=== PATIENT | male | born 1965 | race Caucasian/White ===

== ENCOUNTER 2019-09-07 17:11 | Observation (INO) ==
[2019-09-07] MEDS ORDERED: 0.9 % Sodium Chloride 1,000 ML IVC ONE ×2 (17:55→19:02)
[2019-09-07] MEDS ORDERED: Isovue-370 500 ML BOTTLE IVP ONE (17:56)
[2019-09-07 18:21] LABS: Basophils % 0.4 %; Eosinophils # 0.2 K/mcL (0.0-0.6); Eosinophils % 1.8 %; Hemoglobin 14.9 g/dL (12.9-16.9); Immature Granulocytes % 0.6 % (0-4); Lymphocytes # 1.3 K/mcL (0.6-4.6); Lymphocytes % 13.1 %; Mean Corpuscular HGB Conc 35.5 g/dL (31.6-35.5); Mean Corpuscular Volume 84.7 fL (83.0-100.0); Mean Platelet Volume 9.5 fL (9.4-12.4); Monocytes # 0.6 K/mcL (0.0-1.3); Monocytes % 5.8 %; Neutrophils # 7.6 K/mcL (1.6-8.9); Platelet Count 201 K/mcL (140-400); Red Blood Count 4.96 M/mcL (4.19-5.50); Red Cell Distribution Width 12.2 % (11.5-14.5); Segmented Neutrophils % 78.3 %; White Blood Count 9.7 K/mcL (4.3-11.1)
[2019-09-07 18:45] LABS: Bilirubin,Urine Negative (Negative); Blood,Urine Negative (Negative); Clarity,Urine Clear (Clear); Color,Urine Yellow (Yellow); Glucose,Urine (UA) >=1000 mg/dL (Normal); Ketones,Urine Negative (Negative); Leukocyte Esterase,Urine Negative (Negative); Nitrite,Urine Negative (Negative); PH,Urine 6.5 pH Units (5.0-8.0); Protein,Urine Negative (Neg-Trace); Specific Gravity,Urine > 1.030 (1.010-1.025); Urobilinogen,Urine Normal (Normal)
[2019-09-07 18:46] LABS: Alanine Aminotransferase 47 Units/L (7-52); Albumin 4.1 g/dL (3.5-5.7); Albumin/Globulin Ratio 1.2 (1.1-2.2); Alkaline Phosphatase 182 Units/L (34-104); Aspartate Amino Transferase 46 Units/L (13-39); BUN/Creatinine Ratio 15 (6-26); Bilirubin,Direct 0.4 mg/dL (0.0-0.2); Bilirubin,Total 1.4 mg/dL (0.3-1.0); Blood Urea Nitrogen 12 mg/dL (6-20); Calcium 9.5 mg/dL (8.6-10.3); Carbon Dioxide 24 mEq/L (23-29); Chloride 89 mEq/L (98-107); Globulin 3.4 g/dL (2.4-3.5); Glucose 730 mg/dL (70-105); Lipase 21 Units/L (11-82); Osmolality,Calculated 293 (280-300); Potassium 4.5 mEq/L (3.5-5.1); Sodium 124 mEq/L (136-145); Total Protein 7.5 g/dL (6.4-8.9); Troponin I < 0.03 ng/mL (< 0.04); eGFR For African Americans > 60 (> 60); eGFR For Non-African Americans > 60 (> 60)
[2019-09-07 19:34] LABS: VBG HCO3 27 mEq/L (21-27); VBG PCO2 44 mmHg (41-51); VBG PH 7.39 pH Units (7.32-7.42); VBG PO2 147 mmHg (25-50)
[2019-09-07] MEDS ORDERED: Insulin Regular, Human 100 UNIT/ML SQ ONE (21:04)
[2019-09-07] MEDS ORDERED: Naloxone 0.4 MG/ML INJ IVP PRN (21:12)
[2019-09-07] MEDS ORDERED: 0.9 % Sodium Chloride 1,000 ML IVC SCH (21:15)
[2019-09-07] MEDS ORDERED: *HR* Dextrose 50 % in Water (Syg) 50 ML SYRINGE IVP PRN (21:16)
[2019-09-07] MEDS ORDERED: D5% in Water 1,000 ML IVC PRN (21:16)
[2019-09-07] MEDS ORDERED: Dextrose Gel 15 GM/37.5 ML TUBE PO PRN ×2 (21:16)
[2019-09-07 21:34] LABS: Amphetamine Screen,Urine Positive ng/mL (Cutoff=1000); Barbiturate Screen,Urine Negative ng/mL (Cutoff=200); Benzodiazepines Screen,Urine Negative ng/mL (Cutoff=200); Cannabinoid Screen,Urine Negative ng/mL (Cutoff = 50); Cocaine Screen,Urine Negative ng/mL (Cutoff= 300); Opiate Screen,Urine Negative ng/mL (Cutoff=300); Phencyclidine Screen,Urine Negative ng/mL (Cutoff=25)
[2019-09-07] MEDS ORDERED: Insulin DETEMIR 100 UNIT/ML X5UNITS SQ SCH (22:30)
[2019-09-07 23:10] LABS: Estimated Average Glucose 309 mg/dl
[2019-09-07] MEDS: Insulin LISPRO 300 UNITS/3 ML VIAL SQ SCH ×2 (23:38→23:45)
[2019-09-08] MEDS: Insulin LISPRO 300 UNITS/3 ML VIAL SQ SCH ×5 (02:12→10:36)
[2019-09-08] MEDS ORDERED: Vancomycin 1,500 MG/265 ML IV.SOLN IVPB ONE (03:00)
[2019-09-08 05:08] LABS: Basophils % 0.3 %; Eosinophils # 0.3 K/mcL (0.0-0.6); Eosinophils % 3.7 %; Hematocrit 39.2 % (37.5-50.1); Hemoglobin 13.8 g/dL (12.9-16.9); Immature Granulocytes % 0.5 % (0-4); Lymphocytes % 22.2 %; Mean Corpuscular HGB Conc 35.2 g/dL (31.6-35.5); Mean Corpuscular Hemoglobin 30.1 pg (28.0-33.3); Mean Corpuscular Volume 85.4 fL (83.0-100.0); Monocytes # 0.8 K/mcL (0.0-1.3); Monocytes % 8.8 %; Neutrophils # 5.9 K/mcL (1.6-8.9); Platelet Count 193 K/mcL (140-400); Red Blood Count 4.59 M/mcL (4.19-5.50); Red Cell Distribution Width 12.4 % (11.5-14.5); Segmented Neutrophils % 64.5 %; White Blood Count 9.2 K/mcL (4.3-11.1)
[2019-09-08 05:40] LABS: BUN/Creatinine Ratio 15 (6-26); Blood Urea Nitrogen 9 mg/dL (6-20); Calcium 8.5 mg/dL (8.6-10.3); Carbon Dioxide 29 mEq/L (23-29); Chloride 105 mEq/L (98-107); Glucose 94 mg/dL (70-105); Osmolality,Calculated 286 (280-300); Potassium 3.1 mEq/L (3.5-5.1); Sodium 139 mEq/L (136-145); eGFR For African Americans > 60 (> 60); eGFR For Non-African Americans > 60 (> 60)
[2019-09-08] MEDS ORDERED: Piperacillin/Tazobactam 3.375 GM in 0.9 % Sodium Chloride Mini Bag 100 ML IVPB SCH (08:00)
[2019-09-08 10:21] VITALS: BP 141/79
[2019-09-08] MEDS ORDERED: Insulin LISPRO 300 UNITS/3 ML VIAL SQ SCH (11:30)
[2019-09-08] MEDS ORDERED: Vancomycin 1,250 MG/262.5 ML IV.SOLN IVPB SCH (15:00)
== END 2019-09-08 13:15 | disposition left against medical advice (07) ==
LOC: EMEROOARM 17:11 → 3BNU 17:11 → 3ANU 22:10
PROVIDERS: ADMIT Internal Medicine; ATTEND Internal Medicine

== ENCOUNTER 2020-12-06 15:15 | Inpatient (IN) ==
[2020-12-06] MEDS ORDERED: Acetaminophen 325 MG TABLET PO STA (16:02)
[2020-12-06] MEDS ORDERED: 0.9 % Sodium Chloride 1,000 ML IVC ONE (16:27)
[2020-12-06] MEDS ORDERED: Isovue-370 500 ML BOTTLE IVP ONE (16:37)
[2020-12-06 16:43] LABS: Bilirubin,Urine Negative (Negative); Blood,Urine Negative (Negative); Clarity,Urine Clear (Clear); Color,Urine Light-Yellow (Yellow); Glucose,Urine (UA) >=1000 mg/dL (Normal); Ketones,Urine 40 mg/dL (Negative); Leukocyte Esterase,Urine Negative (Negative); Mucus,Urine Few per lpf (None-Few); Nitrite,Urine Negative (Negative); PH,Urine 6.5 pH Units (5.0-8.0); Protein,Urine Negative (Neg-Trace); RBC,Urine 0-3 per hpf (0-3); Urobilinogen,Urine Normal (Normal); WBC,Urine 0-3 per hpf (0-3)
[2020-12-06 16:47] LABS: Hematocrit 42.8 % (37.5-50.1); Hemoglobin 14.9 g/dL (12.9-16.9); Mean Corpuscular HGB Conc 34.8 g/dL (31.6-35.5); Mean Corpuscular Hemoglobin 30.1 pg (28.0-33.3); Mean Corpuscular Volume 86.5 fL (83.0-100.0); Mean Platelet Volume 9.8 fL (9.4-12.4); Platelet Count 160 K/mcL (140-400); Red Blood Count 4.95 M/mcL (4.19-5.50); Red Cell Distribution Width 12.6 % (11.5-14.5); White Blood Count 22.7 K/mcL (4.3-11.1)
[2020-12-06] MEDS ORDERED: Cefepime HCl 2,000 MG in Water for inj. (sterile) 10 ML IVP STA (16:54)
[2020-12-06] MEDS ORDERED: Vancomycin 1,500 MG/265 ML IV.SOLN IVPB ONE (17:00)
[2020-12-06 17:13] LABS: Alanine Aminotransferase 37 Units/L (7-52); Albumin 3.1 g/dL (3.5-5.7); Albumin/Globulin Ratio 0.8 (1.1-2.2); Alkaline Phosphatase 155 Units/L (34-104); Aspartate Amino Transferase 31 Units/L (13-39); BUN/Creatinine Ratio 30 (6-26); Bilirubin,Total 2.3 mg/dL (0.3-1.0); Blood Urea Nitrogen 22 mg/dL (6-20); Calcium 8.7 mg/dL (8.6-10.3); Carbon Dioxide 23 mEq/L (23-29); Chloride 82 mEq/L (98-107); Globulin 3.8 g/dL (2.4-3.5); Glucose 546 mg/dL (70-105); Osmolality,Calculated 280 (280-300); Potassium 3.9 mEq/L (3.5-5.1); Sodium 121 mEq/L (136-145); Total Protein 6.9 g/dL (6.4-8.9); Troponin I < 0.03 ng/mL (< 0.04); eGFR For African Americans > 60 (> 60); eGFR For Non-African Americans > 60 (> 60)
[2020-12-06 17:26] LABS: Thyroid Stimulating Hormone 0.832 mcIU/mL (0.340-5.600)
[2020-12-06 17:29] LABS: Lymphocytes # 0.5 K/mcL (0.6-4.6); Monocytes # 1.8 K/mcL (0.0-1.3); Neutrophils # 20.4 K/mcL (1.6-8.9)
[2020-12-06 17:30] LABS: Platelet Estimate Normal (Normal)
[2020-12-06] MEDS ORDERED: Insulin Human Regular 10 UNIT in 0.9 % Sodium Chloride 10 ML IV ONE (17:53)
[2020-12-06 17:57] LABS: Influenza A PCR Negative (Negative); Influenza B PCR Negative (Negative); Resp. Syncytial Virus PCR Negative (Negative)
[2020-12-06 17:58] LABS: SARS-CoV-2 by PCR (In House) Negative (Negative)
[2020-12-06] MEDS ORDERED: MetroNIDAZOLE 500 MG/100 ML 500 MG/100 ML BAG IVPB ONE (18:38)
[2020-12-06 18:55] LABS: VBG HCO3 25 mEq/L (21-27); VBG PCO2 37 mmHg (41-51); VBG PH 7.44 pH Units (7.32-7.42); VBG PO2 98 mmHg (25-50)
[2020-12-06] MEDS ORDERED: Ondansetron 4 MG/2 ML VIAL IVP PRN (21:08)
[2020-12-06] MEDS ORDERED: Naloxone 0.4 MG/ML INJ IVP PRN ×2 (21:08→22:38)
[2020-12-06] MEDS ORDERED: *HR* Promethazine 25 MG/ML VIAL IM PRN (21:08)
[2020-12-06] MEDS ORDERED: *HR* OxyCODONE/APAP 5/325 TABLET PO ONE (22:19)
[2020-12-06] MEDS ORDERED: *HR* HYDROcodone/Acet 5/325 mg TABLET PO PRN (22:38)
[2020-12-06] MEDS ORDERED: Dextrose Gel 15 GM/37.5 ML TUBE PO PRN ×2 (22:43)
[2020-12-06] MEDS ORDERED: *HR* Dextrose 50 % in Water (Vial) 50 ML VIAL IVP PRN (22:43)
[2020-12-06] MEDS ORDERED: D5% in Water 1,000 ML IVC PRN (22:43)
[2020-12-06] MEDS ORDERED: Perflutren Lipid Microsphere 1.3 ML in 0.9 % Sodium Chloride 8.7 ML IVP PRN (22:48)
[2020-12-06] MEDS: 0.9 % Sodium Chloride 1,000 ML IVC SCH (23:13)
[2020-12-06 23:32] LABS: INR 1.2; Prothrombin Time 13.7 Seconds (9.4-12.1)
[2020-12-06 23:34] LABS: Activated Partial Thrombo Time 24.1 Seconds (26.0-36.0)
[2020-12-06 23:36] LABS: BUN/Creatinine Ratio 32 (6-26); Blood Urea Nitrogen 17 mg/dL (6-20); C-Reactive Protein 257 mg/L (Less than 10); Carbon Dioxide 23 mEq/L (23-29); Chloride 87 mEq/L (98-107); Creatine Kinase 41 Units/L (30-223); Glucose 293 mg/dL (70-105); Magnesium 1.6 mg/dL (1.6-2.6); Osmolality,Calculated 270 (280-300); Phosphorous 1.8 mg/dL (2.7-4.5); Potassium 3.5 mEq/L (3.5-5.1); Sodium 124 mEq/L (136-145); eGFR For African Americans > 60 (> 60); eGFR For Non-African Americans > 60 (> 60)
[2020-12-07] MEDS ORDERED: Clindamycin 600 MG/50 ML 600 MG/50 ML IV.SOLN IVPB SCH
[2020-12-07] MEDS: 0.9 % Sodium Chloride 1,000 ML IVC SCH (00:42)
[2020-12-07] MEDS: Insulin LISPRO 300 UNITS/3 ML VIAL SUBQ SCH ×4 (00:54→17:11)
[2020-12-07] MEDS: *HR* Heparin 5,000 UNIT/ML VIAL SQ SCH ×4 (01:00→20:33)
[2020-12-07] MEDS: *HR* OxyCODONE Immed Rel 5 MG TABLET PO PRN ×3 (01:37→13:01)
[2020-12-07] MEDS: Clindamycin 600 MG/50 ML 600 MG/50 ML IV.SOLN IVPB SCH ×2 (02:03→09:15)
[2020-12-07] MEDS: Piperacillin/Tazobactam 3.375 GM in 0.9 % Sodium Chloride Mini Bag 100 ML IVPB SCH ×3 (02:12→16:06)
[2020-12-07 05:30] LABS: Sodium, Urine < 10.0 mEq/L
[2020-12-07 05:46] LABS: Amphetamine Screen,Urine Negative ng/mL (Cutoff=1000); Barbiturate Screen,Urine Negative ng/mL (Cutoff=200); Benzodiazepines Screen,Urine Negative ng/mL (Cutoff=200); Cannabinoid Screen,Urine Negative ng/mL (Cutoff = 50); Cocaine Screen,Urine Negative ng/mL (Cutoff= 300); Opiate Screen,Urine Negative ng/mL (Cutoff=300); Phencyclidine Screen,Urine Negative ng/mL (Cutoff=25)
[2020-12-07] MEDS: Vancomycin 1,250 MG/262.5 ML IV.SOLN IVPB SCH ×2 (05:52→17:11)
[2020-12-07 06:14] LABS: Acinetobacter baumannii by PCR Not Detected (Not Detect); Candida albicans by PCR Not Detected (Not Detect); Candida glabrata by PCR Not Detected (Not Detect); Candida krusei by PCR Not Detected (Not Detect); Candida parapsilosis by PCR Not Detected (Not Detect); Candida tropicalis by PCR Not Detected (Not Detect); Enterobacter cloacae Cmplx PCR Not Detected (Not Detect); Enterobacteriaceae by PCR Not Detected (Not Detect); Enterococcus by PCR Not Detected (Not Detect); Escherichia coli by PCR Not Detected (Not Detect); Klebsiella oxytoca by PCR Not Detected (Not Detect); Klebsiella pneumoniae by PCR Not Detected (Not Detect); Proteus by PCR Not Detected (Not Detect); Pseudomonas aeruginosa by PCR Not Detected (Not Detect); Serratia marcescens by PCR Not Detected (Not Detect); Staphylococcus aureus by PCR DETECTED (Not Detect); Staphylococcus by PCR Not Detected (Not Detect); Streptococcus agalactiae(B)PCR Not Detected (Not Detect); Streptococcus by PCR Not Detected (Not Detect); Streptococcus pneumoniae PCR Not Detected (Not Detect); Streptococcus pyogenes (A) PCR Not Detected (Not Detect); mecA Methicillin-Resist Gene Not Detected (Not Detect)
[2020-12-07 06:37] LABS: Hematocrit 37.1 % (37.5-50.1); Mean Corpuscular HGB Conc 34.8 g/dL (31.6-35.5); Mean Corpuscular Hemoglobin 29.9 pg (28.0-33.3); Mean Corpuscular Volume 86.1 fL (83.0-100.0); Platelet Count 114 K/mcL (140-400); Red Blood Count 4.31 M/mcL (4.19-5.50); Red Cell Distribution Width 12.4 % (11.5-14.5); White Blood Count 14.5 K/mcL (4.3-11.1)
[2020-12-07 06:54] LABS: Alanine Aminotransferase 25 Units/L (7-52); Albumin 2.5 g/dL (3.5-5.7); Alkaline Phosphatase 106 Units/L (34-104); Aspartate Amino Transferase 28 Units/L (13-39); BUN/Creatinine Ratio 31 (6-26); Bilirubin,Total 1.9 mg/dL (0.3-1.0); Blood Urea Nitrogen 17 mg/dL (6-20); Calcium 7.5 mg/dL (8.6-10.3); Carbon Dioxide 22 mEq/L (23-29); Chloride 90 mEq/L (98-107); Globulin 2.6 g/dL (2.4-3.5); Glucose 262 mg/dL (70-105); Osmolality,Calculated 275 (280-300); Potassium 3.5 mEq/L (3.5-5.1); Sodium 127 mEq/L (136-145); Total Protein 5.1 g/dL (6.4-8.9); eGFR For African Americans > 60 (> 60); eGFR For Non-African Americans > 60 (> 60)
[2020-12-07 06:58] LABS: Hemoglobin 12.9 g/dL (12.9-16.9)
[2020-12-07 07:14] LABS: Lymphocytes # 0.9 K/mcL (0.6-4.6); Monocytes # 0.9 K/mcL (0.0-1.3); Neutrophils # 12.8 K/mcL (1.6-8.9); Platelet Estimate Slight Decrease (Normal)
[2020-12-07] MEDS: Insulin DETEMIR 100 UNIT/ML X5UNITS SUBQ SCH ×2 (10:09→20:34)
[2020-12-08] MEDS: Piperacillin/Tazobactam 3.375 GM in 0.9 % Sodium Chloride Mini Bag 100 ML IVPB SCH ×4 (00:45→23:25)
[2020-12-08] MEDS: Insulin LISPRO 300 UNITS/3 ML VIAL SUBQ SCH ×4 (00:46→23:34)
[2020-12-08] MEDS: *HR* Heparin 5,000 UNIT/ML VIAL SQ SCH ×4 (05:54→20:21)
[2020-12-08] MEDS ORDERED: *HR* Propofol 200 MG/20 ML VIAL IVP ONE (06:57)
[2020-12-08] MEDS ORDERED: Lidocaine HCL 4 ML Topical Solution (Laryng-O-Jet Kit Sterile Pak) TP ONE (07:00)
[2020-12-08] MEDS ORDERED: *HR* Rocuronium Bromide 50 MG/5 ML VIAL ONE ×3 (07:00→10:22)
[2020-12-08] MEDS ORDERED: Ondansetron 4 MG/2 ML VIAL ONE (07:00)
[2020-12-08] MEDS ORDERED: *HR* FentaNYL (PF) 100 MCG/2 ML VIAL ONE ×2 (07:16→09:21)
[2020-12-08] MEDS ORDERED: Lidocaine -MPF 2% 2 ML VIAL ONE (07:16)
[2020-12-08] MEDS: Insulin DETEMIR 100 UNIT/ML X5UNITS SUBQ SCH ×3 (07:52→21:29)
[2020-12-08] MEDS ORDERED: Dexmedetomidine HCl 400 MCG/100 ML MLS IVC ONE (08:40)
[2020-12-08] MEDS ORDERED: Vancomycin 1,500 MG/265 ML IV.SOLN IVPB SCH (09:00)
[2020-12-08] MEDS ORDERED: Perflutren Lipid Microsphere 1.3 ML in 0.9 % Sodium Chloride 8.7 ML IVP PRN (10:02)
[2020-12-08] MEDS ORDERED: Gadolinium Contrast Agent (WT Based) IV PRN (10:05)
[2020-12-08] MEDS ORDERED: Sugammadex Sodium 200 MG/2 ML VIAL IV ONE (10:21)
[2020-12-08] MEDS ORDERED: *HR* Magnesium Sulfate 1 GM/2 ML VIAL ONE (10:28)
[2020-12-08] MEDS ORDERED: *HR* HYDROMORPHONE 2 MG/ML VIAL ONE (10:48)
[2020-12-08] MEDS ORDERED: Ondansetron 4 MG/2 ML VIAL IVP PRN ×2 (11:55→13:01)
[2020-12-08] MEDS ORDERED: *HR* HYDROmorphone PF 0.5 MG/0.5 ML SYRINGE IVP PRN (11:55)
[2020-12-08] MEDS ORDERED: *HR* Dextrose 50 % in Water (Vial) 50 ML VIAL IVP PRN (13:01)
[2020-12-08] MEDS ORDERED: D5% in Water 1,000 ML IVC PRN (13:01)
[2020-12-08] MEDS ORDERED: *HR* Promethazine 25 MG/ML VIAL IM PRN (13:01)
[2020-12-08] MEDS ORDERED: Naloxone 0.4 MG/ML INJ IVP PRN (13:01)
[2020-12-08] MEDS ORDERED: Dextrose Gel 15 GM/37.5 ML TUBE PO PRN ×2 (13:01)
[2020-12-08] MEDS ORDERED: Isovue-370 500 ML BOTTLE IVP ONE (13:53)
[2020-12-08] MEDS: 0.9 % Sodium Chloride 1,000 ML IVC SCH (14:29)
[2020-12-08] MEDS: Ketorolac 15 MG/ML VIAL IVP SCH ×3 (14:30→23:25)
[2020-12-08] MEDS: Gabapentin 400 MG CAPSULE PO SCH ×2 (14:30→20:18)
[2020-12-08] MEDS: *HR* OxyCODONE Immed Rel 5 MG TABLET PO PRN (15:32)
[2020-12-08 16:10] LABS: Hematocrit 36.7 % (37.5-50.1); Hemoglobin 12.7 g/dL (12.9-16.9); Mean Corpuscular HGB Conc 34.6 g/dL (31.6-35.5); Mean Corpuscular Hemoglobin 29.5 pg (28.0-33.3); Mean Corpuscular Volume 85.2 fL (83.0-100.0); Mean Platelet Volume 9.7 fL (9.4-12.4); Platelet Count 134 K/mcL (140-400); Red Blood Count 4.31 M/mcL (4.19-5.50); Red Cell Distribution Width 12.5 % (11.5-14.5)
[2020-12-08 16:30] LABS: BUN/Creatinine Ratio 32 (6-26); Blood Urea Nitrogen 15 mg/dL (6-20); Calcium 6.5 mg/dL (8.6-10.3); Carbon Dioxide 23 mEq/L (23-29); Chloride 98 mEq/L (98-107); Glucose 168 mg/dL (70-105); Osmolality,Calculated 279 (280-300); Potassium 3.1 mEq/L (3.5-5.1); Sodium 132 mEq/L (136-145); eGFR For African Americans > 60 (> 60); eGFR For Non-African Americans > 60 (> 60)
[2020-12-08 16:57] LABS: Lymphocytes # 1.2 K/mcL (0.6-4.6); Monocytes # 0.5 K/mcL (0.0-1.3); Neutrophils # 10.3 K/mcL (1.6-8.9); Platelet Estimate Slight Decrease (Normal); Reactive Lymphocytes Present (Not Present); Toxic Granulation Present (Not Present)
[2020-12-08] MEDS ORDERED: GADOBUTROL 30 MMOL/30 ML VIAL IVP ONE (17:35)
[2020-12-08] MEDS: Vancomycin 1,500 MG/265 ML IV.SOLN IVPB SCH (18:48)
[2020-12-08] MEDS: Famotidine 20 MG TABLET PO SCH (20:18)
[2020-12-08] MEDS: Sennosides/Docusate Sodium TABLET PO SCH (20:18)
[2020-12-09] MEDS: Vancomycin 1,500 MG/265 ML IV.SOLN IVPB SCH ×2 (00:51→07:50)
[2020-12-09] MEDS: 0.9 % Sodium Chloride 1,000 ML IVC SCH (04:49)
[2020-12-09] MEDS: *HR* Heparin 5,000 UNIT/ML VIAL SQ SCH ×3 (05:42→22:01)
[2020-12-09] MEDS: Ketorolac 15 MG/ML VIAL IVP SCH ×3 (05:45→20:04)
[2020-12-09] MEDS: Insulin LISPRO 300 UNITS/3 ML VIAL SUBQ SCH ×4 (05:46→23:44)
[2020-12-09 06:30] LABS: Hematocrit 34.8 % (37.5-50.1); Mean Corpuscular HGB Conc 34.5 g/dL (31.6-35.5); Mean Corpuscular Hemoglobin 29.9 pg (28.0-33.3); Mean Corpuscular Volume 86.8 fL (83.0-100.0); Mean Platelet Volume 9.9 fL (9.4-12.4); Platelet Count 169 K/mcL (140-400); Red Blood Count 4.01 M/mcL (4.19-5.50); Red Cell Distribution Width 12.7 % (11.5-14.5)
[2020-12-09 06:52] LABS: BUN/Creatinine Ratio 35 (6-26); Blood Urea Nitrogen 18 mg/dL (6-20); Carbon Dioxide 26 mEq/L (23-29); Chloride 99 mEq/L (98-107); Glucose 156 mg/dL (70-105); Magnesium 2.2 mg/dL (1.6-2.6); Osmolality,Calculated 273 (280-300); Potassium 3.2 mEq/L (3.5-5.1); Sodium 129 mEq/L (136-145); eGFR For African Americans > 60 (> 60); eGFR For Non-African Americans > 60 (> 60)
[2020-12-09 06:54] LABS: Calcium 6.8 mg/dL (8.6-10.3)
[2020-12-09] MEDS: Sennosides/Docusate Sodium TABLET PO SCH ×2 (07:42→20:05)
[2020-12-09] MEDS: Gabapentin 400 MG CAPSULE PO SCH ×3 (07:42→20:05)
[2020-12-09] MEDS: Famotidine 20 MG TABLET PO SCH ×2 (07:42→20:05)
[2020-12-09] MEDS: Piperacillin/Tazobactam 3.375 GM in 0.9 % Sodium Chloride Mini Bag 100 ML IVPB SCH (07:43)
[2020-12-09] MEDS: Insulin DETEMIR 100 UNIT/ML X5UNITS SUBQ SCH ×2 (07:49→20:28)
[2020-12-09 08:37] LABS: Vancomycin,Random 13 mcg/mL
[2020-12-09] MEDS: *HR* OxyCODONE Immed Rel 5 MG TABLET PO PRN ×3 (11:48→23:48)
[2020-12-09] MEDS: ceFAZolin 2,000 MG in 0.9 % Sodium Chloride 100 ML IVPB SCH ×2 (15:45→23:47)
[2020-12-09] MEDS: *HR* HYDROcodone/Acet 5/325 mg TABLET PO PRN (20:06)
[2020-12-10] MEDS: Ketorolac 15 MG/ML VIAL IVP SCH ×4 (02:10→17:36)
[2020-12-10 05:35] LABS: Mean Corpuscular Hemoglobin 30.1 pg (28.0-33.3); Mean Corpuscular Volume 88.5 fL (83.0-100.0); Platelet Count 156 K/mcL (140-400); Red Blood Count 3.39 M/mcL (4.19-5.50); Red Cell Distribution Width 12.9 % (11.5-14.5); White Blood Count 10.6 K/mcL (4.3-11.1)
[2020-12-10 05:36] LABS: Hemoglobin 10.2 g/dL (12.9-16.9)
[2020-12-10] MEDS: *HR* Heparin 5,000 UNIT/ML VIAL SQ SCH ×3 (06:16→19:51)
[2020-12-10] MEDS: Insulin LISPRO 300 UNITS/3 ML VIAL SUBQ SCH ×4 (06:17→20:17)
[2020-12-10] MEDS: *HR* OxyCODONE Immed Rel 5 MG TABLET PO PRN ×3 (06:17→19:50)
[2020-12-10 06:21] LABS: BUN/Creatinine Ratio 23 (6-26); Blood Urea Nitrogen 11 mg/dL (6-20); Calcium 7.2 mg/dL (8.6-10.3); Carbon Dioxide 23 mEq/L (23-29); Chloride 103 mEq/L (98-107); Glucose 96 mg/dL (70-105); Osmolality,Calculated 271 (280-300); Potassium 3.8 mEq/L (3.5-5.1); Sodium 131 mEq/L (136-145); eGFR For African Americans > 60 (> 60); eGFR For Non-African Americans > 60 (> 60)
[2020-12-10] MEDS: Sennosides/Docusate Sodium TABLET PO SCH ×2 (08:16→19:51)
[2020-12-10] MEDS: Insulin DETEMIR 100 UNIT/ML X5UNITS SUBQ SCH ×2 (08:16→20:20)
[2020-12-10] MEDS: Gabapentin 400 MG CAPSULE PO SCH ×3 (08:16→19:50)
[2020-12-10] MEDS: Famotidine 20 MG TABLET PO SCH ×2 (08:16→19:51)
[2020-12-10] MEDS: ceFAZolin 2,000 MG in 0.9 % Sodium Chloride 100 ML IVPB SCH ×2 (08:17→15:49)
[2020-12-10] MEDS: *HR* HYDROcodone/Acet 5/325 mg TABLET PO PRN ×2 (08:59→14:52)
[2020-12-10] MEDS: Loratadine 10 MG TABLET PO SCH (14:52)
[2020-12-10] MEDS: Fluticasone Propionate Nasal 50 MCG/SPRAY BOTTLE NS SCH (15:47)
[2020-12-10 16:40] LABS: HIV-1 Ab Supplemental NEGATIVE (Negative); HIV-2 Ab Supplemental NEGATIVE (Negative)
[2020-12-11] MEDS: ceFAZolin 2,000 MG in 0.9 % Sodium Chloride 100 ML IVPB SCH ×3 (00:04→16:30)
[2020-12-11] MEDS: Ketorolac 15 MG/ML VIAL IVP SCH ×4 (00:05→17:12)
[2020-12-11] MEDS: *HR* HYDROcodone/Acet 5/325 mg TABLET PO PRN ×2 (00:27→13:57)
[2020-12-11 03:53] LABS: BUN/Creatinine Ratio 18 (6-26); Blood Urea Nitrogen 10 mg/dL (6-20); Calcium 7.8 mg/dL (8.6-10.3); Carbon Dioxide 21 mEq/L (23-29); Chloride 106 mEq/L (98-107); Glucose 96 mg/dL (70-105); Magnesium 1.9 mg/dL (1.6-2.6); Osmolality,Calculated 277 (280-300); Potassium 4.6 mEq/L (3.5-5.1); Sodium 134 mEq/L (136-145); eGFR For African Americans > 60 (> 60); eGFR For Non-African Americans > 60 (> 60)
[2020-12-11] MEDS: *HR* Heparin 5,000 UNIT/ML VIAL SQ SCH ×3 (05:07→20:33)
[2020-12-11 05:35] LABS: Hematocrit 34.1 % (37.5-50.1); Hemoglobin 11.4 g/dL (12.9-16.9); Mean Corpuscular HGB Conc 33.4 g/dL (31.6-35.5); Mean Corpuscular Hemoglobin 29.6 pg (28.0-33.3); Mean Corpuscular Volume 88.6 fL (83.0-100.0); Mean Platelet Volume 9.3 fL (9.4-12.4); Platelet Count 267 K/mcL (140-400); Red Blood Count 3.85 M/mcL (4.19-5.50); White Blood Count 16.5 K/mcL (4.3-11.1)
[2020-12-11] MEDS: Gabapentin 400 MG CAPSULE PO SCH ×3 (08:08→20:32)
[2020-12-11] MEDS: Famotidine 20 MG TABLET PO SCH ×2 (08:08→20:32)
[2020-12-11] MEDS: Sennosides/Docusate Sodium TABLET PO SCH ×2 (08:08→20:32)
[2020-12-11] MEDS: Loratadine 10 MG TABLET PO SCH (08:09)
[2020-12-11] MEDS: Insulin DETEMIR 100 UNIT/ML X5UNITS SUBQ SCH ×2 (08:20→20:33)
[2020-12-11] MEDS: Fluticasone Propionate Nasal 50 MCG/SPRAY BOTTLE NS SCH (08:26)
[2020-12-11] MEDS: Insulin LISPRO 300 UNITS/3 ML VIAL SUBQ SCH ×4 (08:27→20:33)
[2020-12-11] MEDS: *HR* OxyCODONE Immed Rel 5 MG TABLET PO PRN ×3 (10:26→20:33)
[2020-12-11 21:22] LABS: Basophils % 0.3 %; Eosinophils # 0.1 K/mcL (0.0-0.6); Eosinophils % 0.7 %; Hematocrit 32.5 % (37.5-50.1); Hemoglobin 10.8 g/dL (12.9-16.9); Immature Granulocytes % 4.1 % (0-4); Lymphocytes % 13.2 %; Mean Corpuscular HGB Conc 33.2 g/dL (31.6-35.5); Mean Corpuscular Hemoglobin 29.8 pg (28.0-33.3); Mean Corpuscular Volume 89.8 fL (83.0-100.0); Mean Platelet Volume 9.2 fL (9.4-12.4); Monocytes # 0.9 K/mcL (0.0-1.3); Monocytes % 5.9 %; Neutrophils # 11.2 K/mcL (1.6-8.9); Platelet Count 272 K/mcL (140-400); Red Blood Count 3.62 M/mcL (4.19-5.50); Segmented Neutrophils % 75.8 %; White Blood Count 14.8 K/mcL (4.3-11.1)
[2020-12-12] MEDS: Ketorolac 15 MG/ML VIAL IVP SCH ×5 (00:37→23:12)
[2020-12-12] MEDS: *HR* OxyCODONE Immed Rel 5 MG TABLET PO PRN (00:38)
[2020-12-12] MEDS: ceFAZolin 2,000 MG in 0.9 % Sodium Chloride 100 ML IVPB SCH ×5 (00:38→23:13)
[2020-12-12 02:32] LABS: HIV-1 Ab Supplemental NEGATIVE (Negative); HIV-2 Ab Supplemental NEGATIVE (Negative)
[2020-12-12 05:24] LABS: Acinetobacter baumannii by PCR Not Detected (Not Detect); Enterobacter cloacae Cmplx PCR Not Detected (Not Detect); Enterobacteriaceae by PCR Not Detected (Not Detect); Enterococcus by PCR Not Detected (Not Detect); Escherichia coli by PCR Not Detected (Not Detect); Staphylococcus aureus by PCR DETECTED (Not Detect); Staphylococcus by PCR Not Detected (Not Detect); Streptococcus agalactiae(B)PCR Not Detected (Not Detect); Streptococcus by PCR Not Detected (Not Detect); Streptococcus pneumoniae PCR Not Detected (Not Detect); Streptococcus pyogenes (A) PCR Not Detected (Not Detect); mecA Methicillin-Resist Gene Not Detected (Not Detect)
[2020-12-12 05:25] LABS: Candida albicans by PCR Not Detected (Not Detect); Candida glabrata by PCR Not Detected (Not Detect); Candida krusei by PCR Not Detected (Not Detect); Candida parapsilosis by PCR Not Detected (Not Detect); Candida tropicalis by PCR Not Detected (Not Detect); Klebsiella oxytoca by PCR Not Detected (Not Detect); Klebsiella pneumoniae by PCR Not Detected (Not Detect); Proteus by PCR Not Detected (Not Detect); Pseudomonas aeruginosa by PCR Not Detected (Not Detect); Serratia marcescens by PCR Not Detected (Not Detect)
[2020-12-12] MEDS: *HR* Heparin 5,000 UNIT/ML VIAL SQ SCH ×3 (06:27→20:39)
[2020-12-12] MEDS: Sennosides/Docusate Sodium TABLET PO SCH ×2 (07:47→20:35)
[2020-12-12] MEDS: Famotidine 20 MG TABLET PO SCH ×2 (07:47→20:36)
[2020-12-12] MEDS: Gabapentin 400 MG CAPSULE PO SCH ×3 (07:47→20:35)
[2020-12-12] MEDS: Loratadine 10 MG TABLET PO SCH (07:48)
[2020-12-12] MEDS: Insulin LISPRO 300 UNITS/3 ML VIAL SUBQ SCH ×4 (07:49→20:37)
[2020-12-12] MEDS: Fluticasone Propionate Nasal 50 MCG/SPRAY BOTTLE NS SCH (07:55)
[2020-12-12 09:51] LABS: Basophils # 0.1 K/mcL (0.0-0.2); Basophils % 0.5 %; Eosinophils # 0.2 K/mcL (0.0-0.6); Eosinophils % 1.1 %; Hematocrit 31.7 % (37.5-50.1); Hemoglobin 10.4 g/dL (12.9-16.9); Immature Granulocytes % 4.6 % (0-4); Lymphocytes # 2.1 K/mcL (0.6-4.6); Lymphocytes % 13.4 %; Mean Corpuscular HGB Conc 32.8 g/dL (31.6-35.5); Mean Corpuscular Hemoglobin 29.2 pg (28.0-33.3); Monocytes % 6.5 %; Neutrophils # 11.5 K/mcL (1.6-8.9); Platelet Count 291 K/mcL (140-400); Red Blood Count 3.56 M/mcL (4.19-5.50); Red Cell Distribution Width 13.1 % (11.5-14.5); Segmented Neutrophils % 73.9 %; White Blood Count 15.5 K/mcL (4.3-11.1)
[2020-12-12 10:10] LABS: BUN/Creatinine Ratio 14 (6-26); Blood Urea Nitrogen 8 mg/dL (6-20); Calcium 7.7 mg/dL (8.6-10.3); Carbon Dioxide 23 mEq/L (23-29); Chloride 104 mEq/L (98-107); Glucose 143 mg/dL (70-105); Magnesium 1.7 mg/dL (1.6-2.6); Osmolality,Calculated 275 (280-300); Potassium 4.1 mEq/L (3.5-5.1); Sodium 132 mEq/L (136-145); eGFR For African Americans > 60 (> 60); eGFR For Non-African Americans > 60 (> 60)
[2020-12-12] MEDS: Insulin DETEMIR 100 UNIT/ML X5UNITS SUBQ SCH ×2 (11:39→20:37)
[2020-12-12] MEDS: *HR* HYDROcodone/Acet 5/325 mg TABLET PO PRN ×2 (14:01→20:35)
[2020-12-12 18:40] LABS: CD3 Percent 52 % (62-87); CD8 Percent 14 % (15-46)
[2020-12-13] MEDS ORDERED: Morphine Sulfate Oral CONC 10 MG/0.5 ML ORAL.SYG SL ONE (06:28)
[2020-12-13] MEDS: Ketorolac 15 MG/ML VIAL IVP SCH (06:43)
[2020-12-13] MEDS: *HR* Heparin 5,000 UNIT/ML VIAL SQ SCH ×3 (06:44→21:32)
[2020-12-13] MEDS: ceFAZolin 2,000 MG in 0.9 % Sodium Chloride 100 ML IVPB SCH ×3 (08:29→23:43)
[2020-12-13] MEDS: Fluticasone Propionate Nasal 50 MCG/SPRAY BOTTLE NS SCH (08:30)
[2020-12-13] MEDS: Insulin LISPRO 300 UNITS/3 ML VIAL SUBQ SCH ×4 (08:33→21:32)
[2020-12-13 10:30] LABS: Basophils # 0.1 K/mcL (0.0-0.2); Basophils % 0.4 %; Eosinophils # 0.1 K/mcL (0.0-0.6); Eosinophils % 0.9 %; Hematocrit 30.1 % (37.5-50.1); Hemoglobin 10.2 g/dL (12.9-16.9); Immature Granulocytes % 4.6 % (0-4); Lymphocytes # 1.7 K/mcL (0.6-4.6); Lymphocytes % 12.1 %; Mean Corpuscular HGB Conc 33.9 g/dL (31.6-35.5); Mean Corpuscular Hemoglobin 30.4 pg (28.0-33.3); Mean Corpuscular Volume 89.9 fL (83.0-100.0); Monocytes % 7.2 %; Neutrophils # 10.5 K/mcL (1.6-8.9); Platelet Count 319 K/mcL (140-400); Red Blood Count 3.35 M/mcL (4.19-5.50); Red Cell Distribution Width 13.1 % (11.5-14.5); Segmented Neutrophils % 74.8 %
[2020-12-13 10:45] LABS: BUN/Creatinine Ratio 16 (6-26); Blood Urea Nitrogen 8 mg/dL (6-20); Calcium 7.7 mg/dL (8.6-10.3); Carbon Dioxide 24 mEq/L (23-29); Chloride 105 mEq/L (98-107); Glucose 161 mg/dL (70-105); Osmolality,Calculated 280 (280-300); Potassium 4.3 mEq/L (3.5-5.1); Sodium 134 mEq/L (136-145); eGFR For African Americans > 60 (> 60); eGFR For Non-African Americans > 60 (> 60)
[2020-12-13] MEDS: Loratadine 10 MG TABLET PO SCH (11:33)
[2020-12-13] MEDS: Gabapentin 400 MG CAPSULE PO SCH ×3 (11:33→20:07)
[2020-12-13] MEDS: Famotidine 20 MG TABLET PO SCH ×2 (11:33→20:08)
[2020-12-13] MEDS: Insulin DETEMIR 100 UNIT/ML X5UNITS SUBQ SCH ×2 (11:33→21:31)
[2020-12-13] MEDS: Sennosides/Docusate Sodium TABLET PO SCH ×2 (11:34→20:07)
[2020-12-13] MEDS: *HR* OxyCODONE Immed Rel 5 MG TABLET PO PRN ×2 (14:06→20:29)
[2020-12-13] MEDS: *HR* HYDROcodone/Acet 5/325 mg TABLET PO PRN ×2 (16:33→22:51)
[2020-12-14] MEDS: *HR* OxyCODONE Immed Rel 5 MG TABLET PO PRN ×5 (00:32→21:47)
[2020-12-14 02:33] LABS: Hematocrit 31.4 % (37.5-50.1); Hemoglobin 10.4 g/dL (12.9-16.9); Mean Corpuscular HGB Conc 33.1 g/dL (31.6-35.5); Mean Corpuscular Volume 90.5 fL (83.0-100.0); Platelet Count 350 K/mcL (140-400); Red Blood Count 3.47 M/mcL (4.19-5.50); Red Cell Distribution Width 13.1 % (11.5-14.5)
[2020-12-14 02:47] LABS: BUN/Creatinine Ratio 10 (6-26); Blood Urea Nitrogen 6 mg/dL (6-20); Calcium 7.7 mg/dL (8.6-10.3); Carbon Dioxide 24 mEq/L (23-29); Chloride 102 mEq/L (98-107); Glucose 262 mg/dL (70-105); Osmolality,Calculated 281 (280-300); Potassium 3.8 mEq/L (3.5-5.1); Sodium 132 mEq/L (136-145); eGFR For African Americans > 60 (> 60); eGFR For Non-African Americans > 60 (> 60)
[2020-12-14] MEDS: *HR* Heparin 5,000 UNIT/ML VIAL SQ SCH ×2 (05:38→21:59)
[2020-12-14 06:39] LABS: QuantiFERON Mitogen minus NIL 0.93 IU/mL
[2020-12-14] MEDS ORDERED: Metoprolol XL (24 HR) Succ 25 MG TAB.ER.24H PO SCH (09:00)
[2020-12-14] MEDS: Insulin LISPRO 300 UNITS/3 ML VIAL SUBQ SCH ×3 (09:14→21:48)
[2020-12-14] MEDS: Loratadine 10 MG TABLET PO SCH (09:29)
[2020-12-14] MEDS: *HR* HYDROcodone/Acet 5/325 mg TABLET PO PRN (09:30)
[2020-12-14] MEDS: Gabapentin 400 MG CAPSULE PO SCH ×2 (09:30→21:46)
[2020-12-14] MEDS: Sennosides/Docusate Sodium TABLET PO SCH ×2 (09:30→21:47)
[2020-12-14] MEDS: ceFAZolin 2,000 MG in 0.9 % Sodium Chloride 100 ML IVPB SCH ×2 (09:35→16:40)
[2020-12-14] MEDS: Famotidine 20 MG TABLET PO SCH ×2 (09:41→21:48)
[2020-12-14] MEDS: Fluticasone Propionate Nasal 50 MCG/SPRAY BOTTLE NS SCH (09:41)
[2020-12-14 11:04] LABS: HIV-1 Viral Load Interp NOT DETECTED (Not Detected)
[2020-12-14 11:07] LABS: QuantiFERON NIL 0.01 IU/mL; QuantiFERON-TB Gold In-Tube NEGATIVE (Negative)
[2020-12-14] MEDS: Insulin DETEMIR 100 UNIT/ML X5UNITS SUBQ SCH ×2 (11:34→21:48)
[2020-12-14] MEDS ORDERED: 0.9 % Sodium Chloride 500 ML IVC ONE (13:24)
[2020-12-14] MEDS ORDERED: Lidocaine Viscous Oral Soln 15 ML SOLUTION MM PRN (13:24)
[2020-12-14] MEDS: *HR* Midazolam HCl 5 MG/5 ML VIAL IVP PRN ×3 (13:55→14:05)
[2020-12-14] MEDS: *HR* FentaNYL (PF) 100 MCG/2 ML VIAL IVP PRN ×3 (13:55→14:05)
[2020-12-14] MEDS ORDERED: Dextrose Gel 15 GM/37.5 ML TUBE PO PRN ×2 (15:09)
[2020-12-14] MEDS ORDERED: *HR* Dextrose 50 % in Water (Vial) 50 ML VIAL IVP PRN (15:09)
[2020-12-14] MEDS ORDERED: Ondansetron 4 MG/2 ML VIAL IVP PRN (15:09)
[2020-12-14] MEDS ORDERED: D5% in Water 1,000 ML IVC PRN (15:09)
[2020-12-14] MEDS ORDERED: Furosemide 40 MG/4 ML VIAL IVP ONE (15:20)
[2020-12-15] MEDS: ceFAZolin 2,000 MG in 0.9 % Sodium Chloride 100 ML IVPB SCH ×3 (01:00→18:10)
[2020-12-15] MEDS: *HR* Heparin 5,000 UNIT/ML VIAL SQ SCH ×3 (06:03→21:12)
[2020-12-15] MEDS: *HR* OxyCODONE Immed Rel 5 MG TABLET PO PRN ×4 (06:03→19:05)
[2020-12-15 07:51] LABS: Acinetobacter baumannii by PCR Not Detected (Not Detect); Candida albicans by PCR Not Detected (Not Detect); Candida glabrata by PCR Not Detected (Not Detect); Candida krusei by PCR Not Detected (Not Detect); Candida parapsilosis by PCR Not Detected (Not Detect); Candida tropicalis by PCR Not Detected (Not Detect); Enterobacter cloacae Cmplx PCR Not Detected (Not Detect); Enterobacteriaceae by PCR Not Detected (Not Detect); Enterococcus by PCR Not Detected (Not Detect); Escherichia coli by PCR Not Detected (Not Detect); Klebsiella oxytoca by PCR Not Detected (Not Detect); Klebsiella pneumoniae by PCR Not Detected (Not Detect); Proteus by PCR Not Detected (Not Detect); Pseudomonas aeruginosa by PCR Not Detected (Not Detect); Serratia marcescens by PCR Not Detected (Not Detect); Staphylococcus aureus by PCR DETECTED (Not Detect); Streptococcus agalactiae(B)PCR Not Detected (Not Detect); Streptococcus by PCR Not Detected (Not Detect); Streptococcus pneumoniae PCR Not Detected (Not Detect); Streptococcus pyogenes (A) PCR Not Detected (Not Detect); mecA Methicillin-Resist Gene Not Detected (Not Detect)
[2020-12-15 08:04] LABS: Hematocrit 30.1 % (37.5-50.1); Hemoglobin 9.9 g/dL (12.9-16.9); Mean Corpuscular HGB Conc 32.9 g/dL (31.6-35.5); Mean Corpuscular Hemoglobin 30.2 pg (28.0-33.3); Mean Corpuscular Volume 91.8 fL (83.0-100.0); Mean Platelet Volume 8.9 fL (9.4-12.4); Platelet Count 346 K/mcL (140-400); Red Blood Count 3.28 M/mcL (4.19-5.50); Red Cell Distribution Width 13.1 % (11.5-14.5); White Blood Count 10.5 K/mcL (4.3-11.1)
[2020-12-15 08:22] LABS: BUN/Creatinine Ratio 13 (6-26); Blood Urea Nitrogen 6 mg/dL (6-20); Carbon Dioxide 30 mEq/L (23-29); Chloride 103 mEq/L (98-107); Glucose 161 mg/dL (70-105); Osmolality,Calculated 283 (280-300); Potassium 3.7 mEq/L (3.5-5.1); Sodium 136 mEq/L (136-145); eGFR For African Americans > 60 (> 60); eGFR For Non-African Americans > 60 (> 60)
[2020-12-15] MEDS: Insulin LISPRO 300 UNITS/3 ML VIAL SUBQ SCH ×4 (09:50→21:12)
[2020-12-15] MEDS: Metoprolol XL (24 HR) Succ 25 MG TAB.ER.24H PO SCH (10:02)
[2020-12-15] MEDS: Fluticasone Propionate Nasal 50 MCG/SPRAY BOTTLE NS SCH (10:02)
[2020-12-15] MEDS: Famotidine 20 MG TABLET PO SCH ×2 (10:02→21:11)
[2020-12-15] MEDS: Loratadine 10 MG TABLET PO SCH (10:02)
[2020-12-15] MEDS: Gabapentin 400 MG CAPSULE PO SCH ×3 (10:02→21:11)
[2020-12-15] MEDS: Sennosides/Docusate Sodium TABLET PO SCH ×2 (10:02→21:12)
[2020-12-15] MEDS: Insulin DETEMIR 100 UNIT/ML X5UNITS SUBQ SCH ×2 (10:03→21:16)
[2020-12-15] MEDS ORDERED: Isovue-370 500 ML BOTTLE IVP ONE (13:05)
[2020-12-15] MEDS: Vancomycin 1,500 MG/265 ML IV.SOLN IVPB SCH ×2 (15:01→21:17)
[2020-12-15] MEDS: *HR* HYDROcodone/Acet 5/325 mg TABLET PO PRN ×2 (18:09→23:07)
[2020-12-15] MEDS ORDERED: Morphine Sulfate 2 MG/ML SYRINGE IVP ONE (20:51)
[2020-12-16] MEDS: ceFAZolin 2,000 MG in 0.9 % Sodium Chloride 100 ML IVPB SCH ×3 (01:04→17:09)
[2020-12-16] MEDS: *HR* OxyCODONE Immed Rel 5 MG TABLET PO PRN ×5 (01:16→20:51)
[2020-12-16] MEDS ORDERED: Ketorolac 30 MG/ML VIAL IVP ONE (02:58)
[2020-12-16] MEDS: *HR* HYDROcodone/Acet 5/325 mg TABLET PO PRN ×5 (03:03→23:34)
[2020-12-16] MEDS: *HR* Heparin 5,000 UNIT/ML VIAL SQ SCH ×3 (05:52→20:52)
[2020-12-16] MEDS: Vancomycin 1,500 MG/265 ML IV.SOLN IVPB SCH (06:41)
[2020-12-16 07:44] LABS: Hematocrit 33.7 % (37.5-50.1); Hemoglobin 10.7 g/dL (12.9-16.9); Mean Corpuscular HGB Conc 31.8 g/dL (31.6-35.5); Mean Corpuscular Hemoglobin 29.9 pg (28.0-33.3); Mean Corpuscular Volume 94.1 fL (83.0-100.0); Mean Platelet Volume 8.9 fL (9.4-12.4); Platelet Count 379 K/mcL (140-400); Red Blood Count 3.58 M/mcL (4.19-5.50); White Blood Count 10.2 K/mcL (4.3-11.1)
[2020-12-16] MEDS: Loratadine 10 MG TABLET PO SCH (08:39)
[2020-12-16] MEDS: Famotidine 20 MG TABLET PO SCH ×2 (08:39→20:51)
[2020-12-16] MEDS: Gabapentin 400 MG CAPSULE PO SCH ×3 (08:39→20:50)
[2020-12-16] MEDS: Metoprolol XL (24 HR) Succ 25 MG TAB.ER.24H PO SCH (08:39)
[2020-12-16] MEDS: Sennosides/Docusate Sodium TABLET PO SCH ×2 (08:40→20:51)
[2020-12-16] MEDS: Fluticasone Propionate Nasal 50 MCG/SPRAY BOTTLE NS SCH (08:42)
[2020-12-16] MEDS: Insulin LISPRO 300 UNITS/3 ML VIAL SUBQ SCH ×4 (08:43→21:02)
[2020-12-16 11:04] LABS: Calcium 7.9 mg/dL (8.6-10.3); Chloride 104 mEq/L (98-107); Glucose 219 mg/dL (70-105); Potassium 3.6 mEq/L (3.5-5.1); Sodium 136 mEq/L (136-145)
[2020-12-16] MEDS: Insulin DETEMIR 100 UNIT/ML X5UNITS SUBQ SCH ×2 (12:14→21:01)
[2020-12-16 13:01] LABS: BUN/Creatinine Ratio 8 (6-26); Blood Urea Nitrogen 4 mg/dL (6-20); Carbon Dioxide 26 mEq/L (23-29); Osmolality,Calculated 286 (280-300); eGFR For African Americans > 60 (> 60); eGFR For Non-African Americans > 60 (> 60)
[2020-12-16] MEDS: Vancomycin 1,750 MG/517.5 ML IV.SOLN IVPB SCH ×2 (14:56→23:40)
[2020-12-16] MEDS ORDERED: Morphine Sulfate 2 MG/ML SYRINGE IVP ONE (23:18)
[2020-12-17] MEDS: ceFAZolin 2,000 MG in 0.9 % Sodium Chloride 100 ML IVPB SCH ×3 (02:40→16:49)
[2020-12-17] MEDS: *HR* Heparin 5,000 UNIT/ML VIAL SQ SCH ×3 (06:06→20:36)
[2020-12-17] MEDS: Vancomycin 1,750 MG/517.5 ML IV.SOLN IVPB SCH (06:09)
[2020-12-17] MEDS: Famotidine 20 MG TABLET PO SCH ×2 (07:47→20:35)
[2020-12-17] MEDS: Sennosides/Docusate Sodium TABLET PO SCH ×2 (07:47→20:36)
[2020-12-17] MEDS: Metoprolol XL (24 HR) Succ 25 MG TAB.ER.24H PO SCH (07:48)
[2020-12-17] MEDS: Loratadine 10 MG TABLET PO SCH (07:48)
[2020-12-17] MEDS: Gabapentin 400 MG CAPSULE PO SCH ×3 (07:48→20:35)
[2020-12-17] MEDS: *HR* OxyCODONE Immed Rel 5 MG TABLET PO PRN ×3 (07:49→20:52)
[2020-12-17] MEDS: Fluticasone Propionate Nasal 50 MCG/SPRAY BOTTLE NS SCH (07:50)
[2020-12-17] MEDS: Insulin DETEMIR 100 UNIT/ML X5UNITS SUBQ SCH ×2 (07:51→20:36)
[2020-12-17] MEDS: Insulin LISPRO 300 UNITS/3 ML VIAL SUBQ SCH ×4 (08:20→20:36)
[2020-12-17] MEDS ORDERED: *HR* Vasopressin 20 UNIT/ML VIAL ONE (12:16)
[2020-12-17] MEDS ORDERED: Albumin Human 5% 0 GM/0 ML IV.SOLN ONE (12:16)
[2020-12-17] MEDS ORDERED: *HR* Propofol 200 MG/20 ML VIAL IVP ONE (12:17)
[2020-12-17] MEDS ORDERED: *HR* Rocuronium Bromide 50 MG/5 ML VIAL ONE (12:19)
[2020-12-17] MEDS ORDERED: Ondansetron 4 MG/2 ML VIAL ONE (12:19)
[2020-12-17] MEDS ORDERED: Lidocaine -MPF 2% 2 ML VIAL ONE (12:19)
[2020-12-17] MEDS ORDERED: *HR* FentaNYL (PF) 100 MCG/2 ML VIAL ONE (12:22)
[2020-12-17] MEDS ORDERED: *HR* Midazolam HCl 2 MG/2 ML VIAL ONE (12:23)
[2020-12-17 16:55] LABS: Hematocrit 29.9 % (37.5-50.1); Hemoglobin 9.5 g/dL (12.9-16.9); Mean Corpuscular HGB Conc 31.8 g/dL (31.6-35.5); Mean Corpuscular Hemoglobin 29.7 pg (28.0-33.3); Mean Corpuscular Volume 93.4 fL (83.0-100.0); Mean Platelet Volume 8.6 fL (9.4-12.4); Platelet Count 341 K/mcL (140-400); Red Cell Distribution Width 13.2 % (11.5-14.5); White Blood Count 10.7 K/mcL (4.3-11.1)
[2020-12-17 17:06] LABS: BUN/Creatinine Ratio 6 (6-26); Blood Urea Nitrogen 3 mg/dL (6-20); Calcium 7.9 mg/dL (8.6-10.3); Carbon Dioxide 32 mEq/L (23-29); Chloride 102 mEq/L (98-107); Glucose 131 mg/dL (70-105); Osmolality,Calculated 280 (280-300); Potassium 3.4 mEq/L (3.5-5.1); Sodium 136 mEq/L (136-145); eGFR For African Americans > 60 (> 60); eGFR For Non-African Americans > 60 (> 60)
[2020-12-17] MEDS: Vancomycin 2,000 MG/520 ML IV.SOLN IVPB SCH (20:35)
[2020-12-17] MEDS: *HR* HYDROcodone/Acet 5/325 mg TABLET PO PRN (22:35)
[2020-12-17] MEDS: *HR* Promethazine 25 MG/ML VIAL IM PRN (23:16)
[2020-12-17] MEDS ORDERED: Morphine Sulfate 2 MG/ML SYRINGE IVP ONE (23:39)
[2020-12-18] MEDS: ceFAZolin 2,000 MG in 0.9 % Sodium Chloride 100 ML IVPB SCH ×3 (02:56→17:21)
[2020-12-18] MEDS: Vancomycin 2,000 MG/520 ML IV.SOLN IVPB SCH ×4 (02:57→22:47)
[2020-12-18] MEDS: Acetaminophen 325 MG TABLET PO PRN (03:43)
[2020-12-18] MEDS: *HR* Heparin 5,000 UNIT/ML VIAL SQ SCH ×3 (07:02→20:21)
[2020-12-18] MEDS: Sennosides/Docusate Sodium TABLET PO SCH ×2 (08:04→20:22)
[2020-12-18] MEDS: Famotidine 20 MG TABLET PO SCH ×2 (08:04→20:22)
[2020-12-18] MEDS: Loratadine 10 MG TABLET PO SCH (08:04)
[2020-12-18] MEDS: Metoprolol XL (24 HR) Succ 25 MG TAB.ER.24H PO SCH (08:04)
[2020-12-18] MEDS: Gabapentin 400 MG CAPSULE PO SCH ×3 (08:05→20:22)
[2020-12-18] MEDS: Insulin DETEMIR 100 UNIT/ML X5UNITS SUBQ SCH ×2 (08:19→20:21)
[2020-12-18] MEDS: Insulin LISPRO 300 UNITS/3 ML VIAL SUBQ SCH ×4 (08:56→20:23)
[2020-12-18] MEDS: Fluticasone Propionate Nasal 50 MCG/SPRAY BOTTLE NS SCH (08:57)
[2020-12-18 10:03] LABS: Basophils % 0.5 %; Eosinophils # 0.1 K/mcL (0.0-0.6); Eosinophils % 1.7 %; Hematocrit 28.4 % (37.5-50.1); Immature Granulocytes % 1.7 % (0-4); Lymphocytes # 1.2 K/mcL (0.6-4.6); Mean Corpuscular HGB Conc 31.7 g/dL (31.6-35.5); Mean Corpuscular Hemoglobin 29.6 pg (28.0-33.3); Mean Corpuscular Volume 93.4 fL (83.0-100.0); Mean Platelet Volume 8.8 fL (9.4-12.4); Monocytes # 0.7 K/mcL (0.0-1.3); Monocytes % 8.4 %; Neutrophils # 6.3 K/mcL (1.6-8.9); Platelet Count 290 K/mcL (140-400); Red Blood Count 3.04 M/mcL (4.19-5.50); Red Cell Distribution Width 13.3 % (11.5-14.5); Segmented Neutrophils % 73.7 %; White Blood Count 8.5 K/mcL (4.3-11.1)
[2020-12-18 10:07] LABS: BUN/Creatinine Ratio 6 (6-26); Blood Urea Nitrogen 3 mg/dL (6-20); Calcium 7.8 mg/dL (8.6-10.3); Carbon Dioxide 28 mEq/L (23-29); Chloride 104 mEq/L (98-107); Glucose 213 mg/dL (70-105); Osmolality,Calculated 287 (280-300); Potassium 3.7 mEq/L (3.5-5.1); Sodium 137 mEq/L (136-145); eGFR For African Americans > 60 (> 60); eGFR For Non-African Americans > 60 (> 60)
[2020-12-18] MEDS: *HR* HYDROcodone/Acet 5/325 mg TABLET PO PRN ×2 (11:40→17:19)
[2020-12-18] MEDS: *HR* Promethazine 25 MG/ML VIAL IM PRN (11:41)
[2020-12-18] MEDS: *HR* OxyCODONE Immed Rel 5 MG TABLET PO PRN ×2 (14:03→18:06)
[2020-12-18] MEDS ORDERED: Ketorolac 15 MG/ML VIAL IVP ONE (18:34)
[2020-12-18] MEDS: Vancomycin 1,750 MG/517.5 ML IV.SOLN IVPB SCH (20:01)
[2020-12-18] MEDS ORDERED: Morphine Sulfate 2 MG/ML SYRINGE IVP ONE (20:57)
[2020-12-19] MEDS: *HR* HYDROcodone/Acet 5/325 mg TABLET PO PRN (01:09)
[2020-12-19 01:10] LABS: Basophils % 0.5 %; Eosinophils # 0.2 K/mcL (0.0-0.6); Hematocrit 28.3 % (37.5-50.1); Hemoglobin 9.1 g/dL (12.9-16.9); Lymphocytes # 1.7 K/mcL (0.6-4.6); Lymphocytes % 20.6 %; Mean Corpuscular HGB Conc 32.2 g/dL (31.6-35.5); Mean Corpuscular Hemoglobin 30.1 pg (28.0-33.3); Mean Corpuscular Volume 93.7 fL (83.0-100.0); Mean Platelet Volume 8.8 fL (9.4-12.4); Monocytes # 0.6 K/mcL (0.0-1.3); Monocytes % 7.4 %; Neutrophils # 5.5 K/mcL (1.6-8.9); Platelet Count 281 K/mcL (140-400); Red Blood Count 3.02 M/mcL (4.19-5.50); Red Cell Distribution Width 13.2 % (11.5-14.5); Segmented Neutrophils % 68.5 %; White Blood Count 8.1 K/mcL (4.3-11.1)
[2020-12-19] MEDS: ceFAZolin 2,000 MG in 0.9 % Sodium Chloride 100 ML IVPB SCH ×4 (01:15→20:30)
[2020-12-19 01:22] LABS: BUN/Creatinine Ratio 8 (6-26); Blood Urea Nitrogen 4 mg/dL (6-20); Calcium 8.1 mg/dL (8.6-10.3); Carbon Dioxide 25 mEq/L (23-29); Chloride 106 mEq/L (98-107); Glucose 133 mg/dL (70-105); Magnesium 1.5 mg/dL (1.6-2.6); Osmolality,Calculated 285 (280-300); Potassium 3.6 mEq/L (3.5-5.1); Sodium 138 mEq/L (136-145); eGFR For African Americans > 60 (> 60); eGFR For Non-African Americans > 60 (> 60)
[2020-12-19] MEDS: *HR* Heparin 5,000 UNIT/ML VIAL SQ SCH ×3 (05:22→20:29)
[2020-12-19] MEDS: Vancomycin 2,000 MG/520 ML IV.SOLN IVPB SCH ×3 (05:22→22:45)
[2020-12-19] MEDS: Gabapentin 400 MG CAPSULE PO SCH ×3 (07:50→20:29)
[2020-12-19] MEDS: Metoprolol XL (24 HR) Succ 25 MG TAB.ER.24H PO SCH (07:51)
[2020-12-19] MEDS: Sennosides/Docusate Sodium TABLET PO SCH ×2 (07:52→20:29)
[2020-12-19] MEDS: Insulin DETEMIR 100 UNIT/ML X5UNITS SUBQ SCH ×2 (08:03→20:31)
[2020-12-19] MEDS: Famotidine 20 MG TABLET PO SCH ×2 (08:03→20:29)
[2020-12-19] MEDS: Fluticasone Propionate Nasal 50 MCG/SPRAY BOTTLE NS SCH (08:04)
[2020-12-19] MEDS: Loratadine 10 MG TABLET PO SCH (08:05)
[2020-12-19] MEDS: Insulin LISPRO 300 UNITS/3 ML VIAL SUBQ SCH ×4 (08:15→20:30)
[2020-12-19] MEDS: *HR* OxyCODONE Immed Rel 5 MG TABLET PO PRN ×3 (10:36→16:32)
[2020-12-19] MEDS ORDERED: Morphine Sulfate 2 MG/ML SYRINGE IVP ONE (20:26)
[2020-12-20] MEDS: *HR* OxyCODONE Immed Rel 5 MG TABLET PO PRN ×3 (00:32→21:38)
[2020-12-20] MEDS: *HR* Heparin 5,000 UNIT/ML VIAL SQ SCH ×3 (05:00→21:37)
[2020-12-20] MEDS: CeFAZolin 2,000 MG/120 ML BAG IVPB SCH ×3 (05:01→21:43)
[2020-12-20] MEDS: Vancomycin 2,000 MG/520 ML IV.SOLN IVPB SCH ×3 (06:30→23:57)
[2020-12-20 09:18] LABS: Basophils # 0.1 K/mcL (0.0-0.2); Basophils % 0.6 %; Eosinophils # 0.2 K/mcL (0.0-0.6); Eosinophils % 2.6 %; Hematocrit 29.4 % (37.5-50.1); Hemoglobin 9.4 g/dL (12.9-16.9); Immature Granulocytes % 1.4 % (0-4); Lymphocytes # 1.1 K/mcL (0.6-4.6); Lymphocytes % 14.2 %; Mean Corpuscular Hemoglobin 29.7 pg (28.0-33.3); Mean Corpuscular Volume 92.7 fL (83.0-100.0); Mean Platelet Volume 8.8 fL (9.4-12.4); Monocytes # 0.6 K/mcL (0.0-1.3); Neutrophils # 5.8 K/mcL (1.6-8.9); Platelet Count 264 K/mcL (140-400); Red Blood Count 3.17 M/mcL (4.19-5.50); Red Cell Distribution Width 13.3 % (11.5-14.5); Segmented Neutrophils % 73.2 %
[2020-12-20 09:35] LABS: BUN/Creatinine Ratio 9 (6-26); Blood Urea Nitrogen 5 mg/dL (6-20); Calcium 8.1 mg/dL (8.6-10.3); Carbon Dioxide 28 mEq/L (23-29); Chloride 105 mEq/L (98-107); Glucose 143 mg/dL (70-105); Magnesium 1.7 mg/dL (1.6-2.6); Osmolality,Calculated 286 (280-300); Potassium 3.9 mEq/L (3.5-5.1); Sodium 138 mEq/L (136-145); eGFR For African Americans > 60 (> 60); eGFR For Non-African Americans > 60 (> 60)
[2020-12-20] MEDS: Loratadine 10 MG TABLET PO SCH (10:55)
[2020-12-20] MEDS: Famotidine 20 MG TABLET PO SCH ×2 (10:55→21:37)
[2020-12-20] MEDS: Gabapentin 400 MG CAPSULE PO SCH ×3 (10:55→21:37)
[2020-12-20] MEDS: Sennosides/Docusate Sodium TABLET PO SCH ×2 (10:55→21:37)
[2020-12-20] MEDS: Fluticasone Propionate Nasal 50 MCG/SPRAY BOTTLE NS SCH (10:56)
[2020-12-20] MEDS: Metoprolol XL (24 HR) Succ 25 MG TAB.ER.24H PO SCH (10:56)
[2020-12-20] MEDS ORDERED: Insulin LISPRO 300 UNITS/3 ML VIAL SUBQ SCH (12:00)
[2020-12-20] MEDS: Insulin LISPRO 300 UNITS/3 ML VIAL SUBQ SCH ×2 (17:59→21:40)
[2020-12-20] MEDS: Insulin DETEMIR 100 UNIT/ML X5UNITS SUBQ SCH (22:09)
[2020-12-21] MEDS: *HR* OxyCODONE Immed Rel 5 MG TABLET PO PRN ×4 (04:31→22:51)
[2020-12-21] MEDS: CeFAZolin 2,000 MG/120 ML BAG IVPB SCH ×3 (04:31→20:37)
[2020-12-21 04:50] LABS: Basophils % 0.5 %; Eosinophils # 0.2 K/mcL (0.0-0.6); Hematocrit 29.6 % (37.5-50.1); Hemoglobin 9.6 g/dL (12.9-16.9); Immature Granulocytes % 1.3 % (0-4); Lymphocytes # 1.6 K/mcL (0.6-4.6); Lymphocytes % 21.5 %; Mean Corpuscular HGB Conc 32.4 g/dL (31.6-35.5); Mean Corpuscular Hemoglobin 29.9 pg (28.0-33.3); Mean Corpuscular Volume 92.2 fL (83.0-100.0); Mean Platelet Volume 8.9 fL (9.4-12.4); Monocytes # 0.6 K/mcL (0.0-1.3); Monocytes % 7.4 %; Neutrophils # 4.9 K/mcL (1.6-8.9); Platelet Count 250 K/mcL (140-400); Red Blood Count 3.21 M/mcL (4.19-5.50); Red Cell Distribution Width 13.2 % (11.5-14.5); Segmented Neutrophils % 66.3 %; White Blood Count 7.5 K/mcL (4.3-11.1)
[2020-12-21 05:10] LABS: BUN/Creatinine Ratio 12 (6-26); Blood Urea Nitrogen 6 mg/dL (6-20); Calcium 8.2 mg/dL (8.6-10.3); Carbon Dioxide 26 mEq/L (23-29); Chloride 107 mEq/L (98-107); Glucose 136 mg/dL (70-105); Magnesium 1.7 mg/dL (1.6-2.6); Osmolality,Calculated 288 (280-300); Potassium 3.7 mEq/L (3.5-5.1); Sodium 139 mEq/L (136-145); eGFR For African Americans > 60 (> 60); eGFR For Non-African Americans > 60 (> 60)
[2020-12-21] MEDS: *HR* Heparin 5,000 UNIT/ML VIAL SQ SCH ×3 (05:12→22:51)
[2020-12-21] MEDS: Vancomycin 2,000 MG/520 ML IV.SOLN IVPB SCH ×3 (05:43→23:00)
[2020-12-21] MEDS: Metoprolol XL (24 HR) Succ 25 MG TAB.ER.24H PO SCH (09:27)
[2020-12-21] MEDS: Gabapentin 400 MG CAPSULE PO SCH ×3 (09:28→20:23)
[2020-12-21] MEDS: Famotidine 20 MG TABLET PO SCH ×2 (09:28→20:23)
[2020-12-21] MEDS: Loratadine 10 MG TABLET PO SCH (09:28)
[2020-12-21] MEDS: Sennosides/Docusate Sodium TABLET PO SCH ×2 (09:28→20:23)
[2020-12-21] MEDS: Insulin DETEMIR 100 UNIT/ML X5UNITS SUBQ SCH ×2 (09:30→20:23)
[2020-12-21] MEDS: Fluticasone Propionate Nasal 50 MCG/SPRAY BOTTLE NS SCH (09:32)
[2020-12-21] MEDS: Insulin LISPRO 300 UNITS/3 ML VIAL SUBQ SCH ×5 (09:32→20:40)
[2020-12-22] MEDS ORDERED: *HR* HYDROmorphone 2 MG TABLET PO ONE (02:27)
[2020-12-22] MEDS: CeFAZolin 2,000 MG/120 ML BAG IVPB SCH ×3 (03:49→21:00)
[2020-12-22] MEDS: *HR* Heparin 5,000 UNIT/ML VIAL SQ SCH ×3 (06:33→20:58)
[2020-12-22] MEDS: Vancomycin 2,000 MG/520 ML IV.SOLN IVPB SCH (06:33)
[2020-12-22 06:34] LABS: Basophils % 0.6 %; Eosinophils # 0.3 K/mcL (0.0-0.6); Eosinophils % 4.1 %; Hematocrit 31.6 % (37.5-50.1); Hemoglobin 10.2 g/dL (12.9-16.9); Immature Granulocytes % 2.1 % (0-4); Lymphocytes # 1.2 K/mcL (0.6-4.6); Lymphocytes % 18.7 %; Mean Corpuscular HGB Conc 32.3 g/dL (31.6-35.5); Mean Corpuscular Volume 92.9 fL (83.0-100.0); Mean Platelet Volume 8.7 fL (9.4-12.4); Monocytes # 0.6 K/mcL (0.0-1.3); Monocytes % 8.9 %; Neutrophils # 4.3 K/mcL (1.6-8.9); Platelet Count 234 K/mcL (140-400); Red Cell Distribution Width 13.4 % (11.5-14.5); Segmented Neutrophils % 65.6 %; White Blood Count 6.5 K/mcL (4.3-11.1)
[2020-12-22 06:46] LABS: BUN/Creatinine Ratio 15 (6-26); Blood Urea Nitrogen 8 mg/dL (6-20); Calcium 8.4 mg/dL (8.6-10.3); Carbon Dioxide 24 mEq/L (23-29); Chloride 106 mEq/L (98-107); Glucose 202 mg/dL (70-105); Magnesium 1.6 mg/dL (1.6-2.6); Osmolality,Calculated 288 (280-300); Potassium 3.8 mEq/L (3.5-5.1); Sodium 137 mEq/L (136-145); eGFR For African Americans > 60 (> 60); eGFR For Non-African Americans > 60 (> 60)
[2020-12-22] MEDS: Sennosides/Docusate Sodium TABLET PO SCH ×2 (08:08→20:57)
[2020-12-22] MEDS: Famotidine 20 MG TABLET PO SCH ×2 (08:08→20:56)
[2020-12-22] MEDS: Fluticasone Propionate Nasal 50 MCG/SPRAY BOTTLE NS SCH (08:08)
[2020-12-22] MEDS: Metoprolol XL (24 HR) Succ 25 MG TAB.ER.24H PO SCH (08:08)
[2020-12-22] MEDS: Insulin LISPRO 300 UNITS/3 ML VIAL SUBQ SCH ×7 (08:09→20:51)
[2020-12-22] MEDS: Loratadine 10 MG TABLET PO SCH (08:09)
[2020-12-22] MEDS: Insulin DETEMIR 100 UNIT/ML X5UNITS SUBQ SCH ×2 (08:09→21:09)
[2020-12-22] MEDS: Gabapentin 400 MG CAPSULE PO SCH ×3 (08:09→20:56)
[2020-12-22] MEDS: *HR* OxyCODONE Immed Rel 5 MG TABLET PO PRN ×3 (08:16→20:57)
[2020-12-23] MEDS: *HR* Heparin 5,000 UNIT/ML VIAL SQ SCH ×3 (05:10→21:40)
[2020-12-23] MEDS: CeFAZolin 2,000 MG/120 ML BAG IVPB SCH ×3 (05:11→21:41)
[2020-12-23] MEDS: Loratadine 10 MG TABLET PO SCH (07:56)
[2020-12-23] MEDS: Sennosides/Docusate Sodium TABLET PO SCH ×2 (07:57→21:39)
[2020-12-23] MEDS: Famotidine 20 MG TABLET PO SCH ×2 (07:57→21:39)
[2020-12-23] MEDS: Fluticasone Propionate Nasal 50 MCG/SPRAY BOTTLE NS SCH (07:57)
[2020-12-23] MEDS: Gabapentin 400 MG CAPSULE PO SCH ×3 (07:57→21:39)
[2020-12-23] MEDS: *HR* OxyCODONE Immed Rel 5 MG TABLET PO PRN ×3 (07:57→21:39)
[2020-12-23] MEDS: Metoprolol XL (24 HR) Succ 25 MG TAB.ER.24H PO SCH (07:57)
[2020-12-23] MEDS: Insulin DETEMIR 100 UNIT/ML X5UNITS SUBQ SCH ×2 (07:58→21:40)
[2020-12-23] MEDS: Insulin LISPRO 300 UNITS/3 ML VIAL SUBQ SCH ×7 (08:02→21:40)
[2020-12-23] MEDS: Acetaminophen 325 MG TABLET PO PRN (12:44)
[2020-12-23] MEDS ORDERED: *HR* LORazepam 2 MG/ML VIAL IVP ONE (21:53)
[2020-12-24] MEDS: CeFAZolin 2,000 MG/120 ML BAG IVPB SCH ×3 (04:49→20:03)
[2020-12-24] MEDS: *HR* Heparin 5,000 UNIT/ML VIAL SQ SCH ×3 (04:53→20:06)
[2020-12-24] MEDS: Metoprolol XL (24 HR) Succ 25 MG TAB.ER.24H PO SCH (08:45)
[2020-12-24] MEDS: Insulin DETEMIR 100 UNIT/ML X5UNITS SUBQ SCH ×2 (08:45→20:04)
[2020-12-24] MEDS: Famotidine 20 MG TABLET PO SCH ×2 (08:45→21:33)
[2020-12-24] MEDS: Sennosides/Docusate Sodium TABLET PO SCH ×2 (08:45→21:17)
[2020-12-24] MEDS: Fluticasone Propionate Nasal 50 MCG/SPRAY BOTTLE NS SCH (08:45)
[2020-12-24] MEDS: Gabapentin 400 MG CAPSULE PO SCH ×3 (08:45→21:16)
[2020-12-24] MEDS: Loratadine 10 MG TABLET PO SCH (08:45)
[2020-12-24] MEDS: Insulin LISPRO 300 UNITS/3 ML VIAL SUBQ SCH ×7 (08:59→20:05)
[2020-12-24] MEDS: *HR* OxyCODONE Immed Rel 5 MG TABLET PO PRN ×2 (09:00→18:15)
[2020-12-24 18:58] LABS: BUN/Creatinine Ratio 11 (6-26); Blood Urea Nitrogen 8 mg/dL (6-20); Calcium 8.4 mg/dL (8.6-10.3); Carbon Dioxide 22 mEq/L (23-29); Chloride 103 mEq/L (98-107); Glucose 317 mg/dL (70-105); Osmolality,Calculated 290 (280-300); Potassium 3.7 mEq/L (3.5-5.1); Sodium 135 mEq/L (136-145); eGFR For African Americans > 60 (> 60); eGFR For Non-African Americans > 60 (> 60)
[2020-12-24] MEDS: Naloxone 0.4 MG/ML INJ IVP PRN ×3 (20:15→21:00)
[2020-12-24] MEDS ORDERED: *HR* Metoprolol 5 MG/5 ML VIAL IVP ONE (20:32)
[2020-12-24] MEDS ORDERED: 0.9 % Sodium Chloride 1,000 ML IVC SCH (21:00)
[2020-12-24 21:03] LABS: Hematocrit 33.9 % (37.5-50.1); Hemoglobin 10.9 g/dL (12.9-16.9); Mean Corpuscular HGB Conc 32.2 g/dL (31.6-35.5); Mean Corpuscular Hemoglobin 29.7 pg (28.0-33.3); Mean Platelet Volume 8.9 fL (9.4-12.4); Nucleated Red Blood Cells 0.2 /100 WBC (0); Platelet Count 280 K/mcL (140-400); Red Blood Count 3.67 M/mcL (4.19-5.50); Red Cell Distribution Width 13.8 % (11.5-14.5)
[2020-12-24 21:03] LABS: Amphetamine Screen,Urine Negative ng/mL (Cutoff=1000); Barbiturate Screen,Urine Negative ng/mL (Cutoff=200); Benzodiazepines Screen,Urine Negative ng/mL (Cutoff=200); Cannabinoid Screen,Urine Negative ng/mL (Cutoff = 50); Cocaine Screen,Urine Negative ng/mL (Cutoff= 300); Opiate Screen,Urine Negative ng/mL (Cutoff=300); Phencyclidine Screen,Urine Negative ng/mL (Cutoff=25)
[2020-12-24 21:04] LABS: Mean Corpuscular Volume 92.4 fL (83.0-100.0); White Blood Count 10.1 K/mcL (4.3-11.1)
[2020-12-24 21:13] LABS: Prothrombin Time 11.4 Seconds (9.4-12.1)
[2020-12-24 21:16] LABS: Activated Partial Thrombo Time 25.7 Seconds (26.0-36.0)
[2020-12-24] MEDS: *HR* Metoprolol 5 MG/5 ML VIAL IVP ONE ×2 (21:23→21:32)
[2020-12-24 21:29] LABS: Alanine Aminotransferase 14 Units/L (7-52); Albumin/Globulin Ratio 0.7 (1.1-2.2); Alkaline Phosphatase 189 Units/L (34-104); Aspartate Amino Transferase 43 Units/L (13-39); BUN/Creatinine Ratio 12 (6-26); Bilirubin,Total 0.4 mg/dL (0.3-1.0); Blood Urea Nitrogen 9 mg/dL (6-20); Calcium 8.7 mg/dL (8.6-10.3); Carbon Dioxide 27 mEq/L (23-29); Chloride 104 mEq/L (98-107); Globulin 4.5 g/dL (2.4-3.5); Glucose 131 mg/dL (70-105); Magnesium 1.7 mg/dL (1.6-2.6); Osmolality,Calculated 290 (280-300); Potassium 3.4 mEq/L (3.5-5.1); Sodium 140 mEq/L (136-145); Total Protein 7.5 g/dL (6.4-8.9); Troponin I < 0.03 ng/mL (< 0.04); eGFR For African Americans > 60 (> 60); eGFR For Non-African Americans > 60 (> 60)
[2020-12-24 22:31] LABS: Eosinophils # 0.6 K/mcL (0.0-0.6); Lymphocytes # 1.9 K/mcL (0.6-4.6); Monocytes # 1.8 K/mcL (0.0-1.3); Neutrophils # 5.8 K/mcL (1.6-8.9); Platelet Estimate Normal (Normal); Reactive Lymphocytes Present (Not Present)
[2020-12-24] MEDS ORDERED: Potassium Chloride 20 MEQ, Lidocaine 1% 2 ML in 0.9 % Sodium Chloride 250 ML IVPB ONE (22:35)
[2020-12-25 02:41] LABS: Basophils # 0.1 K/mcL (0.0-0.2); Basophils % 0.8 %; Eosinophils # 0.6 K/mcL (0.0-0.6); Eosinophils % 6.4 %; Hematocrit 33.1 % (37.5-50.1); Hemoglobin 10.4 g/dL (12.9-16.9); Immature Granulocytes % 4.3 % (0-4); Lymphocytes % 23.4 %; Mean Corpuscular HGB Conc 31.4 g/dL (31.6-35.5); Mean Corpuscular Hemoglobin 29.7 pg (28.0-33.3); Mean Corpuscular Volume 94.6 fL (83.0-100.0); Mean Platelet Volume 8.9 fL (9.4-12.4); Monocytes # 0.8 K/mcL (0.0-1.3); Monocytes % 9.4 %; Neutrophils # 4.8 K/mcL (1.6-8.9); Platelet Count 252 K/mcL (140-400); Segmented Neutrophils % 55.7 %; White Blood Count 8.6 K/mcL (4.3-11.1)
[2020-12-25 02:55] LABS: BUN/Creatinine Ratio 15 (6-26); Blood Urea Nitrogen 11 mg/dL (6-20); Calcium 8.5 mg/dL (8.6-10.3); Carbon Dioxide 26 mEq/L (23-29); Chloride 105 mEq/L (98-107); Glucose 222 mg/dL (70-105); Osmolality,Calculated 292 (280-300); Potassium 4.5 mEq/L (3.5-5.1); Sodium 138 mEq/L (136-145); eGFR For African Americans > 60 (> 60); eGFR For Non-African Americans > 60 (> 60)
[2020-12-25] MEDS: CeFAZolin 2,000 MG/120 ML BAG IVPB SCH ×3 (04:16→20:51)
[2020-12-25] MEDS: *HR* Heparin 5,000 UNIT/ML VIAL SQ SCH ×3 (05:10→23:54)
[2020-12-25] MEDS: Insulin LISPRO 300 UNITS/3 ML VIAL SUBQ SCH ×7 (10:19→20:55)
[2020-12-25] MEDS: Fluticasone Propionate Nasal 50 MCG/SPRAY BOTTLE NS SCH (10:31)
[2020-12-25] MEDS: Sennosides/Docusate Sodium TABLET PO SCH ×2 (10:31→20:53)
[2020-12-25] MEDS: Famotidine 20 MG TABLET PO SCH ×2 (10:31→20:54)
[2020-12-25] MEDS: Insulin DETEMIR 100 UNIT/ML X5UNITS SUBQ SCH ×2 (10:31→20:52)
[2020-12-25] MEDS: Gabapentin 400 MG CAPSULE PO SCH ×3 (10:31→20:53)
[2020-12-25] MEDS: Loratadine 10 MG TABLET PO SCH (10:31)
[2020-12-25] MEDS: Metoprolol XL (24 HR) Succ 25 MG TAB.ER.24H PO SCH (10:34)
[2020-12-25 11:01] LABS: Amphetamine Screen,Urine Negative ng/mL (Cutoff=1000); Barbiturate Screen,Urine Negative ng/mL (Cutoff=200); Benzodiazepines Screen,Urine Negative ng/mL (Cutoff=200); Cannabinoid Screen,Urine Negative ng/mL (Cutoff = 50); Cocaine Screen,Urine Negative ng/mL (Cutoff= 300); Opiate Screen,Urine Negative ng/mL (Cutoff=300); Phencyclidine Screen,Urine Negative ng/mL (Cutoff=25)
[2020-12-25] MEDS: *HR* OxyCODONE Immed Rel 5 MG TABLET PO PRN ×2 (14:46→20:54)
[2020-12-26] MEDS: CeFAZolin 2,000 MG/120 ML BAG IVPB SCH ×3 (04:04→20:23)
[2020-12-26] MEDS: *HR* Heparin 5,000 UNIT/ML VIAL SQ SCH ×3 (05:07→21:12)
[2020-12-26] MEDS: Gabapentin 400 MG CAPSULE PO SCH ×3 (08:40→20:11)
[2020-12-26] MEDS: Sennosides/Docusate Sodium TABLET PO SCH ×2 (08:40→20:12)
[2020-12-26] MEDS: Insulin LISPRO 300 UNITS/3 ML VIAL SUBQ SCH ×7 (08:40→20:19)
[2020-12-26] MEDS: Fluticasone Propionate Nasal 50 MCG/SPRAY BOTTLE NS SCH (08:40)
[2020-12-26] MEDS: Metoprolol XL (24 HR) Succ 25 MG TAB.ER.24H PO SCH (08:41)
[2020-12-26] MEDS: Insulin DETEMIR 100 UNIT/ML X5UNITS SUBQ SCH ×2 (08:41→20:25)
[2020-12-26] MEDS: Famotidine 20 MG TABLET PO SCH ×2 (08:41→20:12)
[2020-12-26] MEDS: Loratadine 10 MG TABLET PO SCH (08:43)
[2020-12-27] MEDS ORDERED: *HR* LORazepam 2 MG/ML VIAL IVP ONE (00:03)
[2020-12-27] MEDS: *HR* OxyCODONE Immed Rel 5 MG TABLET PO PRN ×3 (00:31→19:31)
[2020-12-27] MEDS: *HR* Heparin 5,000 UNIT/ML VIAL SQ SCH ×3 (06:13→22:24)
[2020-12-27] MEDS: CeFAZolin 2,000 MG/120 ML BAG IVPB SCH ×3 (06:15→21:05)
[2020-12-27] MEDS: Metoprolol XL (24 HR) Succ 25 MG TAB.ER.24H PO SCH (07:51)
[2020-12-27] MEDS: Gabapentin 400 MG CAPSULE PO SCH ×3 (07:51→20:58)
[2020-12-27] MEDS: Loratadine 10 MG TABLET PO SCH (07:51)
[2020-12-27] MEDS: Sennosides/Docusate Sodium TABLET PO SCH ×2 (07:51→20:59)
[2020-12-27] MEDS: Insulin DETEMIR 100 UNIT/ML X5UNITS SUBQ SCH ×2 (07:52→21:36)
[2020-12-27] MEDS: Famotidine 20 MG TABLET PO SCH ×2 (07:52→20:59)
[2020-12-27] MEDS: Fluticasone Propionate Nasal 50 MCG/SPRAY BOTTLE NS SCH (07:52)
[2020-12-27] MEDS: Insulin LISPRO 300 UNITS/3 ML VIAL SUBQ SCH ×7 (07:52→21:33)
[2020-12-27] MEDS ORDERED: *HR* HYDROmorphone 2 MG TABLET PO ONE (22:02)
[2020-12-28 02:07] LABS: Basophils # 0.1 K/mcL (0.0-0.2); Basophils % 0.8 %; Eosinophils # 0.5 K/mcL (0.0-0.6); Eosinophils % 6.6 %; Hematocrit 34.7 % (37.5-50.1); Immature Granulocytes % 4.9 % (0-4); Lymphocytes # 1.9 K/mcL (0.6-4.6); Lymphocytes % 24.7 %; Mean Corpuscular HGB Conc 31.7 g/dL (31.6-35.5); Mean Corpuscular Hemoglobin 29.2 pg (28.0-33.3); Mean Platelet Volume 9.3 fL (9.4-12.4); Monocytes # 0.8 K/mcL (0.0-1.3); Monocytes % 10.6 %; Platelet Count 270 K/mcL (140-400); Red Blood Count 3.77 M/mcL (4.19-5.50); Red Cell Distribution Width 13.2 % (11.5-14.5); Segmented Neutrophils % 52.4 %; White Blood Count 7.7 K/mcL (4.3-11.1)
[2020-12-28 02:18] LABS: BUN/Creatinine Ratio 15 (6-26); Blood Urea Nitrogen 11 mg/dL (6-20); Calcium 8.8 mg/dL (8.6-10.3); Carbon Dioxide 26 mEq/L (23-29); Chloride 100 mEq/L (98-107); Glucose 308 mg/dL (70-105); Osmolality,Calculated 287 (280-300); Potassium 3.5 mEq/L (3.5-5.1); Sodium 133 mEq/L (136-145); eGFR For African Americans > 60 (> 60); eGFR For Non-African Americans > 60 (> 60)
[2020-12-28] MEDS: CeFAZolin 2,000 MG/120 ML BAG IVPB SCH ×3 (05:46→20:13)
[2020-12-28] MEDS: *HR* Heparin 5,000 UNIT/ML VIAL SQ SCH ×3 (05:47→23:36)
[2020-12-28] MEDS: Insulin LISPRO 300 UNITS/3 ML VIAL SUBQ SCH ×7 (08:39→20:16)
[2020-12-28] MEDS: Insulin DETEMIR 100 UNIT/ML X5UNITS SUBQ SCH ×2 (08:40→20:17)
[2020-12-28] MEDS: Sennosides/Docusate Sodium TABLET PO SCH ×2 (08:40→20:13)
[2020-12-28] MEDS: Fluticasone Propionate Nasal 50 MCG/SPRAY BOTTLE NS SCH (08:40)
[2020-12-28] MEDS: Famotidine 20 MG TABLET PO SCH ×2 (08:41→20:12)
[2020-12-28] MEDS: Gabapentin 400 MG CAPSULE PO SCH ×3 (08:41→20:12)
[2020-12-28] MEDS: Loratadine 10 MG TABLET PO SCH (08:41)
[2020-12-28] MEDS: Metoprolol XL (24 HR) Succ 25 MG TAB.ER.24H PO SCH (08:41)
[2020-12-28] MEDS: *HR* OxyCODONE Immed Rel 5 MG TABLET PO PRN ×3 (08:41→23:42)
[2020-12-29] MEDS: *HR* Heparin 5,000 UNIT/ML VIAL SQ SCH ×3 (06:17→22:33)
[2020-12-29] MEDS: *HR* OxyCODONE Immed Rel 5 MG TABLET PO PRN ×4 (06:19→20:46)
[2020-12-29] MEDS: CeFAZolin 2,000 MG/120 ML BAG IVPB SCH ×3 (06:22→20:56)
[2020-12-29] MEDS: Insulin LISPRO 300 UNITS/3 ML VIAL SUBQ SCH ×7 (08:30→20:54)
[2020-12-29] MEDS: Loratadine 10 MG TABLET PO SCH (08:31)
[2020-12-29] MEDS: Fluticasone Propionate Nasal 50 MCG/SPRAY BOTTLE NS SCH (08:31)
[2020-12-29] MEDS: Gabapentin 400 MG CAPSULE PO SCH ×3 (08:31→20:37)
[2020-12-29] MEDS: Sennosides/Docusate Sodium TABLET PO SCH ×2 (08:31→20:38)
[2020-12-29] MEDS: Famotidine 20 MG TABLET PO SCH ×2 (08:31→20:39)
[2020-12-29] MEDS: Insulin DETEMIR 100 UNIT/ML X5UNITS SUBQ SCH ×2 (08:32→20:53)
[2020-12-29] MEDS: Metoprolol XL (24 HR) Succ 25 MG TAB.ER.24H PO SCH (08:32)
[2020-12-30] MEDS: *HR* OxyCODONE Immed Rel 5 MG TABLET PO PRN ×3 (01:37→17:40)
[2020-12-30 02:31] LABS: Hematocrit 33.4 % (37.5-50.1); Hemoglobin 10.9 g/dL (12.9-16.9); Mean Corpuscular HGB Conc 32.6 g/dL (31.6-35.5); Mean Corpuscular Hemoglobin 29.5 pg (28.0-33.3); Mean Corpuscular Volume 90.5 fL (83.0-100.0); Mean Platelet Volume 9.3 fL (9.4-12.4); Platelet Count 292 K/mcL (140-400); Red Blood Count 3.69 M/mcL (4.19-5.50); Red Cell Distribution Width 13.1 % (11.5-14.5); White Blood Count 8.1 K/mcL (4.3-11.1)
[2020-12-30 02:56] LABS: BUN/Creatinine Ratio 16 (6-26); Blood Urea Nitrogen 10 mg/dL (6-20); Calcium 9.1 mg/dL (8.6-10.3); Carbon Dioxide 25 mEq/L (23-29); Chloride 102 mEq/L (98-107); Glucose 326 mg/dL (70-105); Lymphocytes # 1.5 K/mcL (0.6-4.6); Monocytes # 0.2 K/mcL (0.0-1.3); Neutrophils # 5.8 K/mcL (1.6-8.9); Osmolality,Calculated 292 (280-300); Platelet Estimate Normal (Normal); Smudge Cells Present (Not Present); Sodium 135 mEq/L (136-145); Toxic Granulation Present (Not Present); eGFR For African Americans > 60 (> 60); eGFR For Non-African Americans > 60 (> 60)
[2020-12-30] MEDS: CeFAZolin 2,000 MG/120 ML BAG IVPB SCH ×3 (05:22→19:53)
[2020-12-30] MEDS: *HR* Heparin 5,000 UNIT/ML VIAL SQ SCH ×2 (05:23→15:40)
[2020-12-30] MEDS: Fluticasone Propionate Nasal 50 MCG/SPRAY BOTTLE NS SCH (08:18)
[2020-12-30] MEDS: Insulin LISPRO 300 UNITS/3 ML VIAL SUBQ SCH ×7 (08:18→21:17)
[2020-12-30] MEDS: Loratadine 10 MG TABLET PO SCH (08:20)
[2020-12-30] MEDS: Famotidine 20 MG TABLET PO SCH ×2 (08:21→19:50)
[2020-12-30] MEDS: Sennosides/Docusate Sodium TABLET PO SCH ×2 (08:21→19:50)
[2020-12-30] MEDS: Metoprolol XL (24 HR) Succ 25 MG TAB.ER.24H PO SCH (08:21)
[2020-12-30] MEDS: Gabapentin 400 MG CAPSULE PO SCH ×3 (08:21→19:50)
[2020-12-30] MEDS ORDERED: FLUoxetine HCl Oral Soln 20 MG/5 ML UDC PO SCH (09:00)
[2020-12-30] MEDS: Insulin DETEMIR 100 UNIT/ML X5UNITS SUBQ SCH ×2 (09:14→19:56)
[2020-12-31 00:54] LABS: BUN/Creatinine Ratio 18 (6-26); Blood Urea Nitrogen 11 mg/dL (6-20); Carbon Dioxide 24 mEq/L (23-29); Chloride 102 mEq/L (98-107); Glucose 330 mg/dL (70-105); Osmolality,Calculated 292 (280-300); Sodium 135 mEq/L (136-145); eGFR For African Americans > 60 (> 60); eGFR For Non-African Americans > 60 (> 60)
[2020-12-31] MEDS: *HR* Heparin 5,000 UNIT/ML VIAL SQ SCH ×4 (00:54→20:58)
[2020-12-31 01:03] LABS: Eosinophils # 0.3 K/mcL (0.0-0.6); Hematocrit 35.1 % (37.5-50.1); Hemoglobin 11.3 g/dL (12.9-16.9); Mean Corpuscular HGB Conc 32.2 g/dL (31.6-35.5); Mean Corpuscular Volume 90.2 fL (83.0-100.0); Mean Platelet Volume 9.2 fL (9.4-12.4); Platelet Count 277 K/mcL (140-400); Red Blood Count 3.89 M/mcL (4.19-5.50); Red Cell Distribution Width 13.2 % (11.5-14.5); White Blood Count 8.8 K/mcL (4.3-11.1)
[2020-12-31 02:00] LABS: Lymphocytes # 2.3 K/mcL (0.6-4.6); Monocytes # 1.2 K/mcL (0.0-1.3); Platelet Estimate Normal (Normal); Reactive Lymphocytes Present (Not Present)
[2020-12-31] MEDS: *HR* OxyCODONE Immed Rel 5 MG TABLET PO PRN ×4 (02:08→20:05)
[2020-12-31] MEDS: CeFAZolin 2,000 MG/120 ML BAG IVPB SCH ×3 (06:11→20:08)
[2020-12-31] MEDS: Sennosides/Docusate Sodium TABLET PO SCH ×2 (09:26→20:59)
[2020-12-31] MEDS: Gabapentin 400 MG CAPSULE PO SCH ×3 (09:26→20:49)
[2020-12-31] MEDS: Insulin LISPRO 300 UNITS/3 ML VIAL SUBQ SCH ×7 (09:26→20:56)
[2020-12-31] MEDS: Fluticasone Propionate Nasal 50 MCG/SPRAY BOTTLE NS SCH (09:26)
[2020-12-31] MEDS: Insulin DETEMIR 100 UNIT/ML X5UNITS SUBQ SCH ×2 (09:27→20:50)
[2020-12-31] MEDS: Famotidine 20 MG TABLET PO SCH ×2 (09:27→20:50)
[2020-12-31] MEDS: Loratadine 10 MG TABLET PO SCH (09:27)
[2020-12-31] MEDS: Metoprolol XL (24 HR) Succ 25 MG TAB.ER.24H PO SCH (09:27)
[2021-01-01] MEDS: *HR* OxyCODONE Immed Rel 5 MG TABLET PO PRN ×3 (00:18→12:19)
[2021-01-01 03:29] VITALS: O2SAT 97
[2021-01-01] MEDS: CeFAZolin 2,000 MG/120 ML BAG IVPB SCH ×2 (04:43→12:21)
[2021-01-01] MEDS: *HR* Heparin 5,000 UNIT/ML VIAL SQ SCH ×2 (06:56→15:42)
[2021-01-01 07:23] LABS: Basophils # 0.1 K/mcL (0.0-0.2); Basophils % 1.5 %; Eosinophils # 0.2 K/mcL (0.0-0.6); Eosinophils % 2.7 %; Hematocrit 40.2 % (37.5-50.1); Hemoglobin 12.4 g/dL (12.9-16.9); Immature Granulocytes % 5.2 % (0-4); Lymphocytes # 1.7 K/mcL (0.6-4.6); Mean Corpuscular HGB Conc 30.8 g/dL (31.6-35.5); Mean Corpuscular Hemoglobin 29.4 pg (28.0-33.3); Mean Corpuscular Volume 95.3 fL (83.0-100.0); Monocytes % 11.4 %; Neutrophils # 4.9 K/mcL (1.6-8.9); Platelet Count 281 K/mcL (140-400); Red Blood Count 4.22 M/mcL (4.19-5.50); Red Cell Distribution Width 13.4 % (11.5-14.5); Segmented Neutrophils % 59.2 %; White Blood Count 8.3 K/mcL (4.3-11.1)
[2021-01-01 07:44] LABS: BUN/Creatinine Ratio 19 (6-26); Blood Urea Nitrogen 11 mg/dL (6-20); Calcium 9.6 mg/dL (8.6-10.3); Carbon Dioxide 25 mEq/L (23-29); Chloride 102 mEq/L (98-107); Glucose 199 mg/dL (70-105); Osmolality,Calculated 287 (280-300); Sodium 136 mEq/L (136-145); eGFR For African Americans > 60 (> 60); eGFR For Non-African Americans > 60 (> 60)
[2021-01-01] MEDS: Fluticasone Propionate Nasal 50 MCG/SPRAY BOTTLE NS SCH (08:17)
[2021-01-01] MEDS: Gabapentin 400 MG CAPSULE PO SCH ×2 (08:17→15:43)
[2021-01-01] MEDS: Famotidine 20 MG TABLET PO SCH (08:18)
[2021-01-01] MEDS: Metoprolol XL (24 HR) Succ 25 MG TAB.ER.24H PO SCH (08:18)
[2021-01-01] MEDS: Loratadine 10 MG TABLET PO SCH (08:18)
[2021-01-01] MEDS: Sennosides/Docusate Sodium TABLET PO SCH (08:18)
[2021-01-01] MEDS: Insulin LISPRO 300 UNITS/3 ML VIAL SUBQ SCH ×6 (08:19→17:40)
[2021-01-01 08:21] LABS: Platelet Estimate Normal (Normal)
[2021-01-01 15:09] VITALS: BP 127/80; PULSE 95; TEMP 98.4
[2021-01-01] MEDS: Insulin DETEMIR 100 UNIT/ML X5UNITS SUBQ SCH (16:25)
== END 2021-01-01 17:40 | DRG 710 ==
LOC: 2ANU 15:15 → EMEROOARM 15:15 → 2ANU 20:53 → SUATTDRO 12-07 18:10 → 2NNU 12-08 12:09 → 3ANU 12-14 14:40
PROVIDERS: ADMIT Internal Medicine; ATTEND Internal Medicine

== ENCOUNTER 2021-07-11 16:18 | Observation (INO) ==
[2021-07-11] MEDS ORDERED: Piperacillin/Tazobactam 3.375 GM in 0.9 % Sodium Chloride Mini Bag 100 ML IVPB ONE (16:58)
[2021-07-11] MEDS ORDERED: Vancomycin 1,250 MG/262.5 ML IV.SOLN IVPB ONE (16:58)
[2021-07-11 18:08] LABS: Basophils % 0.3 %; Eosinophils # 0.2 K/mcL (0.0-0.6); Eosinophils % 1.6 %; Hematocrit 37.3 % (37.5-50.1); Hemoglobin 12.6 g/dL (12.9-16.9); Immature Granulocytes % 0.5 % (0-4); Lymphocytes # 0.9 K/mcL (0.6-4.6); Lymphocytes % 9.6 %; Mean Corpuscular HGB Conc 33.8 g/dL (31.6-35.5); Mean Corpuscular Hemoglobin 28.5 pg (28.0-33.3); Mean Corpuscular Volume 84.4 fL (83.0-100.0); Mean Platelet Volume 9.4 fL (9.4-12.4); Monocytes # 0.7 K/mcL (0.0-1.3); Monocytes % 7.6 %; Neutrophils # 7.7 K/mcL (1.6-8.9); Platelet Count 206 K/mcL (140-400); Red Blood Count 4.42 M/mcL (4.19-5.50); Red Cell Distribution Width 12.8 % (11.5-14.5); Segmented Neutrophils % 80.4 %; White Blood Count 9.6 K/mcL (4.3-11.1)
[2021-07-11 18:38] LABS: Alanine Aminotransferase 31 Units/L (7-52); Albumin 3.2 g/dL (3.5-5.7); Albumin/Globulin Ratio 0.7 (1.1-2.2); Alkaline Phosphatase 167 Units/L (34-104); Aspartate Amino Transferase 35 Units/L (13-39); BUN/Creatinine Ratio 12 (6-26); Blood Urea Nitrogen 9 mg/dL (6-20); C-Reactive Protein 70 mg/L (Less than 10); Calcium 8.9 mg/dL (8.6-10.3); Carbon Dioxide 29 mEq/L (23-29); Chloride 88 mEq/L (98-107); Globulin 4.5 g/dL (2.4-3.5); Glucose 703 mg/dL (70-105); Osmolality,Calculated 290 (280-300); Potassium 4.1 mEq/L (3.5-5.1); Sodium 124 mEq/L (136-145); Total Protein 7.7 g/dL (6.4-8.9); eGFR For African Americans > 60 (> 60); eGFR For Non-African Americans > 60 (> 60)
[2021-07-11] MEDS ORDERED: 0.9 % Sodium Chloride 1,000 ML IV ONE (18:56)
[2021-07-11 19:04] LABS: VBG HCO3 30 mEq/L (21-27); VBG PCO2 51 mmHg (41-51); VBG PH 7.38 pH Units (7.32-7.42); VBG PO2 69 mmHg (25-50)
[2021-07-11] MEDS ORDERED: Insulin LISPRO 300 UNITS/3 ML VIAL SUBQ ONE (19:04)
[2021-07-11] MEDS: 0.9 % Sodium Chloride 1,000 ML IV ONE ×2 (19:09→22:34)
[2021-07-11 20:30] LABS: Bilirubin,Urine Negative (Negative); Blood,Urine Negative (Negative); Clarity,Urine Clear (Clear); Color,Urine Colorless (Yellow); Glucose,Urine (UA) >=1000 mg/dL (Normal); Ketones,Urine Negative (Negative); Leukocyte Esterase,Urine Negative (Negative); Nitrite,Urine Negative (Negative); PH,Urine 7.5 pH Units (5.0-8.0); Protein,Urine Negative (Neg-Trace); RBC,Urine 0-3 per hpf (0-3); Specific Gravity,Urine > 1.030 (1.010-1.025); Squamous Epithelial Cell,Urine Few per hpf (None-Few); Urobilinogen,Urine Normal (Normal)
[2021-07-11 20:37] LABS: Amphetamine Screen,Urine Positive ng/mL (Cutoff=1000); Barbiturate Screen,Urine Negative ng/mL (Cutoff=200); Benzodiazepines Screen,Urine Negative ng/mL (Cutoff=200); Cannabinoid Screen,Urine Negative ng/mL (Cutoff = 50); Cocaine Screen,Urine Negative ng/mL (Cutoff= 300); Opiate Screen,Urine Negative ng/mL (Cutoff=300); Phencyclidine Screen,Urine Negative ng/mL (Cutoff=25)
[2021-07-11] MEDS ORDERED: Dextrose 4 GM Chewable Tablets PO PRN ×2 (20:39)
[2021-07-11] MEDS ORDERED: D5% in Water 1,000 ML IVC PRN (20:39)
[2021-07-11] MEDS ORDERED: *HR* Dextrose 50 % in Water (Syg) 50 ML SYRINGE IVP PRN (20:39)
[2021-07-11] MEDS ORDERED: Naloxone 0.4 MG/ML INJ IVP PRN (20:43)
[2021-07-11] MEDS ORDERED: Ondansetron 4 MG/2 ML VIAL IVP PRN (21:00)
[2021-07-11] MEDS ORDERED: Insulin DETEMIR 100 UNIT/ML X5UNITS SUBQ ONE (21:00)
[2021-07-12 00:54] LABS: Hematocrit 36.2 % (37.5-50.1); Hemoglobin 12.6 g/dL (12.9-16.9); Mean Corpuscular HGB Conc 34.8 g/dL (31.6-35.5); Mean Corpuscular Hemoglobin 28.7 pg (28.0-33.3); Mean Corpuscular Volume 82.5 fL (83.0-100.0); Mean Platelet Volume 9.3 fL (9.4-12.4); Platelet Count 198 K/mcL (140-400); Red Blood Count 4.39 M/mcL (4.19-5.50); Red Cell Distribution Width 12.8 % (11.5-14.5)
[2021-07-12 01:10] LABS: % Iron Saturation 11 % (20-55); Iron 34 mcg/dL (65-175); Transferrin 224 mg/dL (203-362)
[2021-07-12 01:19] LABS: BUN/Creatinine Ratio 11 (6-26); Blood Urea Nitrogen 7 mg/dL (6-20); Calcium 8.7 mg/dL (8.6-10.3); Carbon Dioxide 32 mEq/L (23-29); Chloride 97 mEq/L (98-107); Chol/HDL Ratio 2.5 (0-4.9); Cholesterol 89 mg/dL (< 200); Glucose 259 mg/dL (70-105); HDL Cholesterol 36 mg/dL (40-59); LDL Cholesterol,Calculated 40 mg/dL (< 100); Magnesium 1.6 mg/dL (1.6-2.6); Osmolality,Calculated 283 (280-300); Potassium 3.6 mEq/L (3.5-5.1); Sodium 133 mEq/L (136-145); Triglycerides 65 mg/dL (< 150); eGFR For African Americans > 60 (> 60); eGFR For Non-African Americans > 60 (> 60)
[2021-07-12 01:29] LABS: Ferritin 156 ng/mL (20-250)
[2021-07-12 01:35] LABS: Folate 21.9 ng/mL (3.0-16.0)
[2021-07-12 01:36] LABS: Vitamin B12 853 pg/mL (250-1100)
[2021-07-12] MEDS: Insulin LISPRO 300 UNITS/3 ML VIAL SUBQ SCH ×4 (01:57→18:09)
[2021-07-12] MEDS: 0.9 % Sodium Chloride 1,000 ML IVC SCH ×2 (02:43→12:41)
[2021-07-12 03:00] LABS: Hepatitis B Core IgM Nonreactive (Nonreactive)
[2021-07-12 03:01] LABS: Hepatitis A Antibody IgM Nonreactive (Nonreactive)
[2021-07-12] MEDS: Piperacillin/Tazobactam 3.375 GM in 0.9 % Sodium Chloride Mini Bag 100 ML IVPB SCH ×2 (03:49→12:39)
[2021-07-12 03:56] LABS: Estimated Average Glucose 295 mg/dl; Hemoglobin A1C 11.9 %
[2021-07-12 05:23] LABS: Hepatitis B Surface Antigen Reactive (Nonreactive); Hepatitis C Virus Antibody Reactive (Nonreactive)
[2021-07-12] MEDS: Vancomycin 1,250 MG/262.5 ML IV.SOLN IVPB SCH ×2 (12:39→12:41)
[2021-07-12] MEDS ORDERED: Famotidine 20 MG/2 ML VIAL IVP ONE (15:24)
[2021-07-12] MEDS ORDERED: Celecoxib 200 MG CAPSULE PO ONE (15:25)
[2021-07-12] MEDS ORDERED: *HR* FentaNYL (PF) 100 MCG/2 ML VIAL ONE ×2 (16:02→17:03)
[2021-07-12] MEDS ORDERED: Lidocaine -MPF 2% 2 ML VIAL ONE (16:02)
[2021-07-12] MEDS ORDERED: Ondansetron 4 MG/2 ML VIAL ONE (16:02)
[2021-07-12] MEDS ORDERED: *HR* Midazolam HCl 2 MG/2 ML VIAL ONE (16:02)
[2021-07-12] MEDS ORDERED: *HR* Propofol 200 MG/20 ML VIAL IVP ONE (16:03)
[2021-07-12] MEDS ORDERED: Lidocaine HCL 4 ML Topical Solution (Laryng-O-Jet Kit Sterile Pak) TP ONE (16:47)
[2021-07-12] MEDS ORDERED: *HR* Succinylcholine 200 MG/10 ML VIAL IVP ONE (16:54)
[2021-07-12] MEDS ORDERED: Ketamine HCL *QUVA* 50mg (1mL) SYRINGE ONE (16:56)
[2021-07-12] MEDS ORDERED: Ondansetron 4 MG/2 ML VIAL IVP PRN (17:14)
[2021-07-12] MEDS ORDERED: *HR* HYDROmorphone PF 0.5 MG/0.5 ML SYRINGE IVP PRN (17:14)
[2021-07-12 18:05] VITALS: O2SAT 97
[2021-07-12 18:09] VITALS: BP 149/95; PULSE 85; TEMP 97.5
[2021-07-12] MEDS ORDERED: Ketorolac 30 MG/ML VIAL IVP PRN (18:48)
[2021-07-12] MEDS ORDERED: Acetaminophen IV 500 MG/50 ML BAG IVPB ONE (19:00)
[2021-07-13] MEDS ORDERED: Vancomycin 1,250 MG/262.5 ML IV.SOLN IVPB SCH (02:00)
[2021-07-14 00:55] LABS: HIV-1 Ab Supplemental NEGATIVE (Negative); HIV-2 Ab Supplemental NEGATIVE (Negative)
== END 2021-07-12 20:34 | disposition left against medical advice (07) ==
LOC: 3ANU 16:18 → EMEROOARM 16:18 → SUATTDRO 19:50 → 3ANU 20:21
PROVIDERS: ADMIT Student in an Organized Health Care Education/Training Program; ATTEND Student in an Organized Health Care Education/Training Program